=== PATIENT | male | born 1945 | race Caucasian/White ===

== ENCOUNTER → 2017-12-06 09:21 | Outpatient (CLI) | payer OTHER, SELFPAY ==
[2017-12-06 12:28] LABS: Thyroid Stim Hormone (TSH) 2.08 uIU/mL (0.358-3.74)
== END ==
PROVIDERS: Family Provider Family Medicine; PCP Family Medicine; Visit Provider Family Medicine
DX: E03.9 Hypothyroidism, unspecified (principal)
CPT/HCPCS: 36415; 84443

== ENCOUNTER → 2018-04-04 09:48 | Outpatient (CLI) | payer OTHER, SELFPAY ==
[2018-04-03 10:31] VITALS: BMI 23.7
== END ==
PROVIDERS: Family Provider Family Medicine; PCP Family Medicine; Referring Provider Nurse Practitioner Family; Visit Provider Nurse Practitioner Family
DX: K62.5 Hemorrhage of anus and rectum (principal)
CPT/HCPCS: 82274

== ENCOUNTER → 2018-04-05 10:06 | Outpatient (CLI) | payer MEDICARE, SELFPAY ==
[2018-04-03 10:31] VITALS: BMI 23.7
== END ==
PROVIDERS: Family Provider Family Medicine; PCP Family Medicine; Referring Provider Nurse Practitioner Family; Visit Provider Nurse Practitioner Family
DX: K62.5 Hemorrhage of anus and rectum (principal)
CPT/HCPCS: 82274

== ENCOUNTER 2018-05-02 06:16 | Day surgery (SDC) | payer MEDICARE, SELFPAY ==
[2018-04-03 10:31] VITALS: BMI 23.7
[2018-05-02] VITALS (7 sets, daily range): BP systolic 118–140; BP diastolic 60–91; PULSE 58–68; RESP 14–16; TEMP 36.2–37.4; O2SAT 95–100; BMI 23.0
--- NOTE | 2018-05-02 07:40 | HP.PCM_ITS ---
History of Present Illness Date of Admission: 05/02/18 The patient is a 73 year old M here for screening colonoscopy. He reports his last colonoscopy was 13 years ago. He did not have any polyps. He denies any family history of colon cancer and he denies any blood in the stool or abdominal pain. He has no inadvertent weight loss. Past Medical/Surgical History - Planned Operation Planned Operative Procedure/s: cscope open access Date of Operative Procedure: 05/02/18 Permit Signed: No S.O.S: No Is This Patient Having a Total Joint: No - Previous Hospitalizations/Surgeries HX Hospitalizations: No HX of Surgeries: 2009 right knee partial replacement. 1999 left knee partial. right and left shoulder scopes. 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 Hx Heart Attack: No Hx Congestive Heart Failure: No Hx Rheumatic Fever: No Hx Hypertension: Yes - controlled with med Hx Internal Defibrillator: No Hx Pacemaker: No Hx Cardiac Catheterization: No Hx Cardiac Surgery/Stents/Etc.: No Hx Stress Test: Yes - over 5 yrs ago/echo 2 yrs ago HX Edema: No Hx Pain in Legs when Walking/Leg Cramps: No - Respiratory Chronic Cough: No HX of Shortness of Breath: No Hoarseness: No Hx Chronic Obstructive Pulmonary Disease (COPD): No Hx Asthma: No Hx Emphysema: No Hx Sleep Apnea: No Hx Oxygen Use at Home: No Hx Respiratory Tract Infection/Cold (presently): No Do You Snore Loudly (louder than talking or can be heard): No Do You Often Feel Tired/ Fatigued/ Sleepy Dring Daytime?: No Has Anyone Observed You Stop Breathing During Sleep?: No Result (for STOP score): Negative Hx Smoking: No Smoking Status: Never smoker - Gastrointestinal Hx Gastroesophageal Reflux: No Hx Gastrointestinal Disorders: No Hx Gastrointestinal Bleed: No Hx Ulcer: No Hx Hiatal Hernia: No Difficulty Chewing/Swallowing: No Recent Onset of Swallowing Problems: No Special diet followed at home: No Hx Unplanned Weight Loss of 20#: No HX Unplanned Weight Gain of 20#: No - Neurological Hx Seizures: No HX Syncope/Blackout Spells/Unconsciousness: No Hx CVA/Stroke: No Hx Transient Ischemic Attacks (TIA): No Hx Multiple Sclerosis: No Hx Parkinson's Disease: No Hx Head/Neck Injury: No Hx Headaches: No Hx Back Injury/Pain: No Recent Onset of Speech Difficulty: No Restless Legs: No Does patient have nerve stimulator: No Patient instructed to have device shut off: No Rep notified?: No - Blood Disorder Hx Leukemia: No Bleeding Tendencies: No Hx Deep Vein Thrombosis: No Hx High Cholesterol: Yes - no med Blood Transmitted Disease: No Hx Hepatitis: No Hx Cirrhosis: No Hx Anemia: No Hx Blood Disorders: No - Genitourinary Hx Renal Disease: No - troubles with urination/on flomax - Musculoskeletal Hx Arthritis: Yes Hx Rheumatoid Arthritis: No Hx Gout: No Recent Onset of an Orthopedic Problem: No - Endocrine Hx Diabetes: No Thyroid Disease: Yes - on med Hx Steroid Therapy: No - Psycho/Social Hx Substance Use: No Hx Alcohol Use: No Hx Anxiety: No Hx Depression: No Mental Illness: No Hx Dementia: No - 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 - Miscellaneous Hx Cancer: No Recent Exposure to Contagious Disease: No Active MRSA: No Hx of C-Diff: No Any Loose Teeth: No Allergies donepezil [From Aricept] Allergy (Unknown, Verified 05/02/18 06:39) Unknown - Discharge Is Pt Admitted From a Retirement, or a Longterm: No Who Could Help: After D/C, Where Do you Plan to Go: Return Home - From the PAT History Number of Risk Factors: 2 - Physical Exam General: Alert, Oriented x3, Cooperative Neck: No JVD Lungs: Normal air movement Cardiovascular: Regular rate, Regular Rhythm Abdomen: Soft, Non Tender, Non-Distended Vital Signs Temp Pulse Resp BP Pulse Ox 99.2 F H 58 L 14 137/60 H 100 05/02/18 06:43 05/02/18 06:43 05/02/18 06:43 05/02/18 06:43 05/02/18 06:43 Oxygen Delivery Method Room Air Weight: 151 lb 7.321 oz Body Mass Index (BMI) 23.0 Assessment/Plan 73-year-old male for screening colonoscopy 1. I explained endoscopy in detail to the patient. I explained the risks including but not limited to stroke or heart attack with anesthesia, perforation of the GI tract, bleeding, infection. I explained that any of these could necessitate further emergency surgery. The patient understands and all questions were answered sufficiently. The patient wishes to proceed with procedure. Agus Muñiz MD Pager: [facility] [address] [place] [address] [address] [place] [address] Office: Surgery Risks - Colonoscopy Risks Include but are not Limited To: Risks include but are not limited to: Bleeding, perforation requiring further surgery, inability to complete colonoscopy requiring barium enema.
--- OUTSIDE RECORDS SUMMARY | 2018-07-06 13:59 | XMS RPT_ITS ---
:1945 Author Organization [place] Support Name Relationship Address Phone JOSÉ LUIS BORGES Unavailable [address] + [place] [address] KATERINA LACI Unavailable Unavailable + [place] [address] R Unavailable Unavailable Unavailable JOSÉ LUIS BORGES Unavailable [address] + [place] [address] LACI BORGES Unavailable Unavailable + [place] [address] R Unavailable Unavailable Unavailable JOSÉ LUIS BORGES Unavailable [address] + [place] [address] LACI BORGES Unavailable . + ., . . R Unavailable Unavailable Unavailable JOSÉ LUIS BORGES Unavailable [address] + [place] [address] KATERINA LACI Unavailable Unavailable + R Unavailable Unavailable Unavailable JOSÉ LUIS BORGES Unavailable [address] + [place] [address] LACI BORGES Unavailable Unavailable + R Unavailable Unavailable Unavailable JOSÉ LUIS BORGES Unavailable [address] + [place] [address] LACI BORGES Unavailable . + ., [place] . R Unavailable Unavailable Unavailable JOSÉ LUIS BORGES Unavailable [address] + [place] [address] LACI BORGES Unavailable Unavailable + R Unavailable Unavailable Unavailable JOSÉ LUIS BORGES Unavailable [address] + [place] [address] LACI BORGES Unavailable Unavailable + R Unavailable Unavailable Unavailable DOMER JOSÉ LUIS Unavailable [address] + [place] [address] R Unavailable Unavailable Unavailable DOMER, JOSÉ LUIS Unavailable [address] + [place] [address] R Unavailable Unavailable Unavailable DOMER, JOSÉ LUIS Unavailable [address] + [place] [address] R Unavailable Unavailable Unavailable DOMER, JOSÉ LUIS Unavailable [address] + [place] [address] DOMER, JOSÉ LUIS Unavailable [address] + [place] [address] DOMER, JOSÉ LUIS Unavailable [address] + [place] [address] DOMER, JOSÉ LUIS Unavailable [address] + [place] [address] DOMER, JOSÉ LUIS Unavailable [address] + [place] [address] DOMER, JOSÉ LUIS Unavailable [address] + [place] [address] Care Team Providers Name Role Phone ABUNDIO NEYHEIDI Attending Unavailable BROWN, RORY Primary Care Unavailable FERMIN DENNY MD, JR. Attending Unavailable BROWN, RORY Primary Care Unavailable FERMIN DENNY MD, JR. Attending Unavailable BROWN, RORY Primary Care Unavailable Abimael Guardado CHLORINATOR-C Attending Unavailable Brown, Rory Referring Unavailable GuardadoAbimael barboza CHLORINATOR-C Attending Unavailable GuardadoAbimael CHLORINATOR-C Referring Unavailable Brown, Rory Primary Care Unavailable Abimael Guardado CHLORINATOR-C Attending Unavailable Guardado, Abimael CHLORINATOR-C Referring Unavailable Brown, Rory Primary Care Unavailable Nurse, Surgery Attending Unavailable Brown, Rory Referring Unavailable Agus Muñiz Attending Unavailable Rickyabrvenkat Agus Referring Unavailable Brown, Rory Primary Care Unavailable Agus Muñiz Attending Unavailable Mary Kay Agus Referring Unavailable Brown, Rory Primary Care Unavailable Agus Muñiz Consulting Unavailable Bonnie Richardson Attending Unavailable Bonnie Richardson Attending Unavailable Brown, Rory Attending Unavailable Brown, Rory Referring Unavailable Brown, Rory Primary Care Unavailable Brown, Rory Attending Unavailable Rory Camacho Referring Unavailable Doug Rory Primary Care Unavailable Lynette Hines Attending Unavailable PROBLEMS PROBLEMS DATE TYPE CONDITION / CODE ATTENDING STATUS SOURCE 04/04/2018 Unknown K62.5 - Abimael Guardado Active [place] Hemorrhage of CHLORINATOR-C [facility] anus and rectum / Hospital K62.5(ICD-10) Repository 12/09/2017 Unknown E03.9 - DougRory Active [place] Hypothyroidism, Community unspecified / Hospital E03.9(ICD-10) Repository PROCEDURES PROCEDURES No Procedure Records FoundRESULTS RESULTS HISTORY AND PHYSICAL Observed: 05/02/2018 Status: F Source: [facility] [place] EXAM 7:40 AM [facility] REPOSITORY [facility] Medical Records Department [address] [place] [address] History and Physical 05/02/18 0739 MR#: [id number] Acct: [id number] Name: KATLYN BORGES Rep #: [id number] : 1945 73 From: Agus Muñiz MD PCP: Rory Camacho DO Status: REG [facility] Y Location: [place] [address] History of Present Illness Date of Admission: 05/02/18 The patient is a 73 year old M here for screening colonoscopy. He reports his last colonoscopy was 13 years ago. He did not have any polyps. He denies any family history of colon cancer and he denies any blood in the stool or abdominal pain. He has no inadvertent weight loss. Past Medical/Surgical History - Planned Operation Planned Operative Procedure/s: cscope open access Date of Operative Procedure: 05/02/18 Permit Signed: No S.O.S: No Is This Patient Having a Total Joint: No - Previous Hospitalizations/Surgeries HX Hospitalizations: No HX of Surgeries: 2009 right knee partial replacement. 1999 left knee partial. right and left shoulder scopes. colonoscopy Any Problems With Anesthesia: Yes - nausea and vomiting in the past You/Your Family Experience Fever (Hyperthermia) With Anes: No Cholinesterase deficiency: No - Cardiovascular Hx Chest Pain within Last 2 months: No Hx of Irregular Heartbeat and/or Afib: No - mvp/follows with [facility]/last visit 06/2017 Hx Heart Attack: No Hx Congestive Heart Failure: No Hx Rheumatic Fever: No Hx Hypertension: Yes - controlled with med Hx Internal Defibrillator: No Hx Pacemaker: No Hx Cardiac Catheterization: No Hx Cardiac Surgery/Stents/Etc.: No Hx Stress Test: Yes - over 5 yrs ago/echo 2 yrs ago HX Edema: No Hx Pain in Legs when Walking/Leg Cramps: No - Respiratory Chronic Cough: No HX of Shortness of Breath: No Hoarseness: No Hx Chronic Obstructive Pulmonary Disease (COPD): No Hx Asthma: No Hx Emphysema: No Hx Sleep Apnea: No Hx Oxygen Use at Home: No Hx Respiratory Tract Infection/Cold (presently): No Do You Snore Loudly (louder than talking or can be heard): No Do You Often Feel Tired/ Fatigued/ Sleepy Dring Daytime?: No Has Anyone Observed You Stop Breathing During Sleep?: No Result (for STOP score): Negative Hx Smoking: No Smoking Status: Never smoker - Gastrointestinal Hx Gastroesophageal Reflux: No Hx Gastrointestinal Disorders: No Hx Gastrointestinal Bleed: No Hx Ulcer: No Hx Hiatal Hernia: No Difficulty Chewing/Swallowing: No Recent Onset of Swallowing Problems: No Special diet followed at home: No Hx Unplanned Weight Loss of 20#: No HX Unplanned Weight Gain of 20#: No - Neurological Hx Seizures: No HX Syncope/Blackout Spells/Unconsciousness: No Hx CVA/Stroke: No Hx Transient Ischemic Attacks (TIA): No Hx Multiple Sclerosis: No Hx Parkinson's Disease: No Hx Head/Neck Injury: No Hx Headaches: No Hx Back Injury/Pain: No Recent Onset of Speech Difficulty: No Restless Legs: No Does patient have nerve stimulator: No Patient instructed to have device shut off: No Rep notified?: No - Blood Disorder Hx Leukemia: No Bleeding Tendencies: No Hx Deep Vein Thrombosis: No Hx High Cholesterol: Yes - no med Blood Transmitted Disease: No Hx Hepatitis: No Hx Cirrhosis: No Hx Anemia: No Hx Blood Disorders: No - Genitourinary Hx Renal Disease: No - troubles with urination/on flomax - Musculoskeletal Hx Arthritis: Yes Hx Rheumatoid Arthritis: No Hx Gout: No Recent Onset of an Orthopedic Problem: No - Endocrine Hx Diabetes: No Thyroid Disease: Yes - on med Hx Steroid Therapy: No - Psycho/Social Hx Substance Use: No Hx Alcohol Use: No Hx Anxiety: No Hx Depression: No Mental Illness: No Hx Dementia: No - 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 - Miscellaneous Hx Cancer: No Recent Exposure to Contagious Disease: No Active MRSA: No Hx of C-Diff: No Any Loose Teeth: No Allergies donepezil [From Aricept] Allergy (Unknown, Verified 05/02/18 06:39) Unknown - Discharge Is Pt Admitted From a Mcfp, or a Custodial: No Who Could Help: After D/C, Where Do you Plan to Go: Return Home - From the PAT History Number of Risk Factors: 2 - Physical Exam General: Alert, Oriented x3, Cooperative Neck: No JVD Lungs: Normal air movement Cardiovascular: Regular rate, Regular Rhythm Abdomen: Soft, Non Tender, Non-Distended Vital Signs Temp Pulse Resp BP Pulse Ox 99.2 F H 58 L 14 137/60 H 100 05/02/18 06:43 05/02/18 06:43 05/02/18 06:43 05/02/18 06:43 05/02/18 06:43 Oxygen Delivery Method Room Air Weight: 151 lb 7.321 oz Body Mass Index (BMI) 23.0 Assessment/Plan 73-year-old male for screening colonoscopy 1. I explained endoscopy in detail to the patient. I explained the risks including but not limited to stroke or heart attack with anesthesia, perforation of the GI tract, bleeding, infection. I explained that any of these could necessitate further emergency surgery. The patient understands and all questions were answered sufficiently. The patient wishes to proceed with procedure. Agus Muñiz MD Pager: [facility] [address] [place] [address], [address] [place] [address] Office: Surgery Risks - Colonoscopy Risks Include but are not Limited To: Risks include but are not limited to: Bleeding, perforation requiring further surgery, inability to complete colonoscopy requiring barium enema. 05/02/18 7740 <Electronically signed by Agus Muñiz MD> Date Agus Muñiz MD Cosigner Signature: Date (if applicable) CC: Agus Muñiz MD; Rory Camacho DO Signed Observed: 04/05/2018 Status: F Source: [facility] STOOL OCCULT BLOOD 10:38 AM [facility]OB REPOSITORY STOB iFOB Occult Blood Negative Performed By: #### [id number] #### [facility] [address] [place], [address] Observed: 04/04/2018 Status: F Source: [facility] STOOL OCCULT BLOOD 9:52 AM [facility] REPOSITORY Comments: x 3 for diagnostic purposes STOB iFOB Occult Blood Negative Performed By: #### [id number] #### [facility] [address], [address] INTERNAL MEDICINE Observed: 04/03/2018 Status: F Source: JEZ OFFICE VISIT 12:05 PM [facility] REPOSITORY [facility] [address] [place] [address] [place] [address] OFFICE VISIT Date of Service: 04/03/18 MR#: [id number] Acct: [id number] Name: KATLYN BORGES Brady Rep #: [id number] : 1945 Provider: Abimael Guardado NP Age/Sex: 73/M Location: [facility] Status: Signed Intake Vital Signs04/03/18 Body Mass Index (BMI) 23.7 04/03/18 Height 5 ft 7.75 in 04/03/18 Weight: 158 lb 04/03/18 Body Mass Index (BMI) 24.2 04/03/18 Blood Pressure 136/77 H 04/03/18 Blood Pressure Location brachial Intake Visit Reasons: Bleeding with bowel movement Chief Complaint: Rectal bleeding Is patient in pain?: No Allergies donepezil [From Aricept] Allergy (Unknown, Verified 04/03/18 10:30) Unknown Medications metoprolol tartrate 50 mg tablet 50 mg PO BID 10/09/17 [History Confirmed 04/03/18] tamsulosin 0.4 mg capsule 0.4 mg PO QDAY #90 cap 10/09/17 [Rx Confirmed 04/03/18] aspirin 81 mg tablet,delayed release 81 mg PO DAILY 12/05/17 [History Confirmed 04/03/18] naproxen sodium 220 mg tablet 220 mg PO BID PRN 12/05/17 [History Confirmed 04/03/18] levothyroxine 75 mcg tablet 75 mcg PO DAILY #90 tab 12/17/17 [Rx Confirmed 04/03/18] memantine 10 mg tablet 10 mg PO BID #180 tab 03/11/18 [Rx Confirmed 04/03/18] PFSH Medical History Mitral valve prolapse (Chronic) Arthritis (Chronic) Memory impairment (Chronic) BPH (benign prostatic hyperplasia) (Chronic) Hypothyroid (Chronic) Surgical History History of cardiac catheterization (Acute) History of cataract extraction (Acute) History of knee replacement (Acute) History of orthopedic surgery (Acute) Family History Brother Stomach cancer Lung cancer Diabetes Sister Diabetes Social History Smoking Status: Never smoker alcohol intake: never substance use type: does not use what type of physical activity do you participate in: none HPI HPI Chief Complaint: Rectal bleeding Details: KATLYN BORGES, is a 73 M who presents to the office today for an acute visit of bright red blood per stool this morning x1 occasion. He has a past medical history is as above. The patient presents to the office today with his . He denies any prior history of rectal bleeding or hemorrhoids or constipation. The patient states that he went to have his morning bowel movement and noticed some bright red blood in the toilet. He denies any constipation denies any straining. He does state that his last colonoscopy was over 10 years ago and that it was normal. However he is due for another screening colonoscopy. Denies any prior history of colon cancer and denies any other acute concerns at this time. He does state that this was the first occasion that he has ever noted blood in the stool. The patient otherwise denies any fever, chills, nausea, vomiting, shortness of breath, chest pain or pressure, palpitations, orthopnea, lower extremity edema, syncope or presyncopal episodes. ROS Const Constitutional: No chills, fatigue, fever(s), frequent falls, malaise, weakness, sleep problems or change in appetite Eyes Eyes: No blurry vision, change in vision, double vision, discharge or visual disturbances ENT ENT: No abnormal hearing, ear pain, ear pressure, tinnitus or dizziness/vertigo Resp Respiratory: No cough, shortness of breath or wheezing Cardio Cardiology: No chest pain at rest, chest pain with exertion, shortness of breath, dyspnea on exertion, generalized swelling, irregular heart rhythm, lightheadedness, orthopnea, fast heart rate or palpitations Gastro GI: No abdominal pain, change in bowel habits, constipation, diarrhea, nausea/dyspepsia or vomiting Genitourinary Male: No difficulty urinating, burning urination, painful urination, urinary incontinence, urinary frequency, urinary urgency, urinary hesitancy, urinary retention, blood in urine, Frequent nighttime urination/ nocturia, sexual problems, testicle lump or testicle pain Musc Musculoskeletal: Positive for joint pain (Lt Hip); no back pain, joint swelling, limited range of motion, numbness, tingling or muscle weakness Skin Skin: No change in skin color, itching, rash or wounds Breast Breast: No breast lump or breast pain Neuro Neurology: No frequent falls, weakness, abnormal hearing, numbness, tingling, unsteady gait/balance, dizziness, loss of vision, memory loss or visual disturbances Psych Psychiatric: No memory loss, No anxiety, No change in appetite, No depression, No Thoughts of harming yourself/Others Endo Endocrine: No fatigue, heat intolerance, increased thirst/drinking, increased hunger or increased urination Aller/Imm Allergy/Immunologic: No wheezing, itchy eyes or seasonal allergy symptoms Khoi/Lymp Hematologic/Lymphatic: No easy bleeding, easy bruising or enlarged lymph nodes Exam Const General: cooperative, healthy appearing Nutritional Appearance: average body habitus Orientation: oriented x3 Neck Neck: normal visual inspection, no lymphadenopathy Neck mass: No Thyroid: thyroid normal Resp Effort AND Inspection: normal respiratory effort Auscultation: Bilateral: Clear to Auscultation Cardio Rate: regular rate Rhythm: regular rhythm GI Rectal Exam: normal sphincter tone, No fecal impaction, No fissure, hemorrhoids Other: External nonthrombosed hemorrhoid present at 6:00, no visible blood present on exam Musc Musculoskeletal: No muscle weakness Skin General: no rashes or lesions noted Neuro General: alert, awake Cranial Nerves: CN's II-XI intact bilaterally Cognition: normal cognition Speech: speech normal Gait: normal gait Motor: muscle tone normal throughout Psych Attitude: cooperative Thought Process: normal Thought Content: normal Judgment: judgment good Assessment AND Plan Problems 1. Rectal bleeding K62.5 2. External hemorrhoid K64.4 Plan Patient's rectal bleeding most likely due to his hemorrhoid. Discussed conservative management such as increasing fluid intake, increasing fiber intake, and the use of [id number] Preparation H. The hemorrhoid is not thrombosed at this time. Did discuss with patient that since he is due for his screening colonoscopy that this should be scheduled. In the meantime a fecal occult blood test was ordered x3 for diagnostic purposes. Patient and educated on red flag signs and symptoms requiring urgent medical attention, both verbalized understanding. Information given to patient regarding the local general surgeons who do colonoscopies. Patient to follow-up as previously scheduled or sooner if needed Orders Orders: Coding Level of Care Code Off vis,est,level 3 Diagnoses Rectal bleeding K62.5 External hemorrhoid K64.4 04/03/18 1205 <Electronically signed by Abimael MOREAU> Date Abimael MOREAU Cosigner Signature: Date (if applicable) CC: THYROID STIM HORMONE Collected: 12/06/2017 Status: F Source: [facility] (TSH) 9:35 AM [facility] REPOSITORY TYPE CODE TESTS RESULT OUT OF RANGE REFERENCE UNITS LAB L501.9520 0.358-3.74 uIU/mL Normal TSH 2.08 Performed By: #### L501.9520 #### [facility] [address] [place], [address] INTERNAL MEDICINE Observed: 12/05/2017 Status: F Source: JEZ OFFICE VISIT 2:37 PM [facility] REPOSITORY [facility] [address] [place] [address] OFFICE VISIT Date of Service: 12/05/17 MR#: [id number] Acct: [id number] Name: KATLYN BORGES Rep #: [id number] : 1945 Provider: Rory Camacho DO Age/Sex: 72/M Location: [facility] Status: Signed Intake Vital Signs12/05/17 Height 5 ft 7.75 in 12/05/17 Weight: 155 lb 12/05/17 Body Mass Index (BMI) 23.7 12/05/17 Blood Pressure 132/74 Intake Visit Reasons: EST Chief Complaint: Est Care - Check up Is patient in pain?: No Allergies donepezil [From Aricept] Allergy (Unknown, Verified 12/05/17 13:38) Unknown Medications metoprolol tartrate 50 mg tablet 50 mg PO BID 10/09/17 [History Confirmed 10/09/17] tamsulosin 0.4 mg capsule 0.4 mg PO QDAY #90 cap 10/09/17 [Rx] memantine 10 mg tablet 10 mg PO BID #180 tab 11/26/17 [Rx] aspirin 81 mg tablet,delayed release 81 mg PO DAILY 12/05/17 [History Confirmed 12/05/17] levothyroxine 75 mcg capsule 75 mcg PO DAILY 12/05/17 [History Confirmed 12/05/17] naproxen sodium 220 mg tablet 220 mg PO BID PRN 12/05/17 [History Confirmed 12/05/17] PFSH Medical History Mitral valve prolapse (Chronic) Arthritis (Chronic) Memory impairment (Chronic) BPH (benign prostatic hyperplasia) (Chronic) Hypothyroid (Chronic) Surgical History History of cardiac catheterization (Acute) History of cataract extraction (Acute) History of knee replacement (Acute) History of orthopedic surgery (Acute) Family History Brother Stomach cancer Lung cancer Diabetes Sister Diabetes Social History Smoking Status: Never smoker alcohol intake: never substance use type: does not use what type of physical activity do you participate in: none HPI HPI Chief Complaint: Est Care - Check up Details: KATLYN BORGES, is a 72 M who presents to the office today for a check up, he has seen Dr. Denny, has been on memantine for his memory, ROS Const Constitutional: No chills, fatigue, fever(s), frequent falls, malaise, weakness, sleep problems or change in appetite Eyes Eyes: No blurry vision, change in vision, double vision, discharge or visual disturbances ENT ENT: Positive for hearing loss; no abnormal hearing, ear pain, ear pressure, tinnitus or dizziness/vertigo Resp Respiratory: No cough, shortness of breath or wheezing Cardio Cardiology: No chest pain at rest, chest pain with exertion, shortness of breath, dyspnea on exertion, generalized swelling, irregular heart rhythm, lightheadedness, orthopnea, fast heart rate or palpitations Gastro GI: No abdominal pain, change in bowel habits, constipation, diarrhea, nausea/dyspepsia or vomiting Genitourinary Male: Positive for urinary frequency; no difficulty urinating, burning urination, painful urination, urinary incontinence, urinary urgency, urinary hesitancy, urinary retention, blood in urine, Frequent nighttime urination/ nocturia, sexual problems, testicle lump or testicle pain Musc Musculoskeletal: No joint pain, back pain, joint swelling, limited range of motion, muscle weakness, numbness or tingling Skin Skin: No change in skin color, itching, rash or wounds Breast Breast: No breast lump or breast pain Neuro Neurology: Positive for unsteady gait/balance; no frequent falls, weakness, abnormal hearing, numbness, tingling, dizziness, loss of vision, memory loss or visual disturbances Psych Psychiatric: No memory loss, No anxiety, No change in appetite, No depression, No Thoughts of harming yourself/Others Endo Endocrine: No fatigue, heat intolerance, increased thirst/drinking, increased hunger or increased urination Aller/Imm Allergy/Immunologic: No wheezing, itchy eyes or seasonal allergy symptoms Khoi/Lymp Hematologic/Lymphatic: No easy bleeding, easy bruising or enlarged lymph nodes Exam Const General: cooperative, healthy appearing Nutritional Appearance: average body habitus Orientation: oriented x3 Neck Neck: normal visual inspection, no lymphadenopathy Neck mass: No Thyroid: thyroid normal Resp Effort AND Inspection: normal respiratory effort Auscultation: Bilateral: Clear to Auscultation Cardio Rate: regular rate Rhythm: regular rhythm Musc Musculoskeletal: No muscle weakness Skin General: no rashes or lesions noted Neuro General: alert, awake Cranial Nerves: CN's II-XI intact bilaterally Cognition: normal cognition Speech: speech normal Gait: normal gait Motor: muscle tone normal throughout Psych Attitude: cooperative Thought Process: normal Thought Content: normal Judgment: judgment good Assessment AND Plan Problems 1. Memory impairment R41.3 2. BPH (benign prostatic hyperplasia) N40.0 3. Hypothyroid E03.9 Plan This patient was here for regular checkup. He has seen a neurologist Dr. Boyd who says that he believes he has early Alzheimer's disease and continue him on the Namenda that I had started him on about 2 years ago. Physical examination was unchanged. Mental status examination was unchanged. A TSH was ordered and I will refill his thyroid based on the results of that test. Orders Orders: Plan Detail Follow Up 1 Year Coding Level of Care Code Off vis,est,level 3 Diagnoses Memory impairment R41.3 BPH (benign prostatic hyperplasia) N40.0 Hypothyroid E03.9 12/05/17 1437 <Electronically signed by Rory Camacho DO> Date Rory Camacho DO Cosigner Signature: Date (if applicable) CC: MRI BRAIN W/O Observed: 08/19/2017 Status: F Source: [employer] CONTRAST 11:00 AM [facility] REPOSITORY ORIGINAL MRI BRAIN W/O CONTRAST Clinical Statement: ATAXIA, DEMENTIA TECHNIQUE: Sagittal T1, axial FLAIR, T2 and diffusion-weighted images of the brain with ADC maps. COMPARISON: None. FINDINGS: Diffusion imaging shows no hyperacute, acute, or early subacute infarction. There is no mass, mass-effect, or abnormal extra- axial fluid collection. Dilated perivascular spaces are noted in the LEFT basal ganglia. There is no abnormal brain parenchymal signal. The ventricles are mildly enlarged with commensurate enlargement of sulci consistent with mild atrophy which is most prominent posteriorly. Bilateral cereb ellar atrophy also noted. There are preserved signal voids in the larger intracranial vessels. The posterior circulation appears diminutive but bilateral posterior communicating arteries are identified. The paranasal sinuses and mastoid air cells are clear. The marrow signal pattern is unremarkable. IMPRESSION: 1. No acute intracranial abnormality. 2. Mild cerebral atrophy with a posterior predominance. 3. Bilateral cerebellar atrophy. Interpreted By: Margarita Chou Preliminary Report By: Margarita Chou Electronically Signed By: Margarita Chou Dictated Date: 08/19/2017 11:49:05 AM Prelim Date: 08/19/2017 11:49:05 AM Sign Date: 08/19/2017 11:56:00 AM BUN Collected: 08/02/2017 Status: F Source: [facility] 7:33 AM [facility] REPOSITORY TYPE CODE TESTS RESULT OUT OF RANGE REFERENCE UNITS LAB BUN(LOINC) 7.0-18.0 mg/dL High BUN 29.1 Performed By: #### BUN, CRE, GFR, TSH #### [address] [address] #### B12, FOL #### [place] [address] CRE Collected: 08/02/2017 Status: F Source: [facility] 7:33 AM [facility] REPOSITORY TYPE CODE TESTS RESULT OUT OF REFERENCE UNITS RANGE LAB CRE(LOINC) 0.6-1.2 mg/dL Creatinine Lvl 1.2 (s) Performed By: #### BUN, CRE, GFR, TSH #### [address] [address] #### B12, FOL #### [place] [address] .GFR Collected: 08/02/2017 Status: F Source: [facility] 7:33 AM [facility] REPOSITORY TYPE CODE TESTS RESULT OUT OF REFERENCE UNITS RANGE LAB GFRAA(LOINC ml/min/1.73 ) sqm GFR 74 Monegasque Result Comment: GFR Population mean for , Non- Americans Ages 20-29 = 116 mL/min/1.73 sq.m. Ages 30-39 = 107 mL/min/1.73 sq.m. Ages 40-49 = 99 mL/min/1.73 sq.m. Ages 50-59 = 93 mL/min/1.73 sq.m. Ages 60-69 = 85 mL/min/1.73 sq.m. Ages 70+ = 75 mL/min/1.73 sq.m. Chronic Kidney Disease: Less than 60 mL/min/1.73 square meters End Stage Renal Disease: Less than 15 mL/min/1.73 square meters LAB GFRNO(LOINC) ml/min/1.73sqm GFR Non- >60 Result Comment: GFR Population mean for , Non- Americans Ages 20-29 = 116 mL/min/1.73 sq.m. Ages 30-39 = 107 mL/min/1.73 sq.m. Ages 40-49 = 99 mL/min/1.73 sq.m. Ages 50-59 = 93 mL/min/1.73 sq.m. Ages 60-69 = 85 mL/min/1.73 sq.m. Ages 70+ = 75 mL/min/1.73 sq.m. Chronic Kidney Disease: Less than 60 mL/min/1.73 square meters End Stage Renal Disease: Less than 15 mL/min/1.73 square meters Performed By: #### BUN, CRE, GFR, TSH #### [place] [address] #### B12, FOL #### [place] [address] TSH Collected: 08/02/2017 Status: F Source: [facility] 7:33 AM [facility] REPOSITORY TYPE CODE TESTS RESULT OUT OF RANGE REFERENCE UNITS LAB TSH(LOINC) 0.27-4.20 mcIU/mL TSH 3.83 Performed By: #### BUN, CRE, GFR, TSH #### [address] [address] #### B12, FOL #### [place] [address] B12 Collected: 08/02/2017 Status: F Source: [facility] 7:33 AM [facility] REPOSITORY TYPE CODE TESTS RESULT OUT OF REFERENCE UNITS RANGE LAB B12(LOINC) 211-911 pg/mL Vitamin B12 424 Lvl Performed By: #### BUN, CRE, GFR, TSH #### [place] [id number] #### B12, FOL #### [place] [address] FOL Collected: 08/02/2017 Status: F Source: [facility] 7:33 AM [facility] REPOSITORY TYPE CODE TESTS RESULT OUT OF REFERENCE UNITS RANGE LAB FOL(LOINC) 1.1-20.0 ng/mL Folate 19.3 Performed By: #### BUN, CRE, GFR, TSH #### [place] [address] [place], [place] [address] #### B12, FOL #### [place] [id number] [place] [address] LIPID Collected: 06/27/2017 Status: F Source: [facility] 8:41 AM [facility] REPOSITORY TYPE CODE TESTS RESULT OUT OF REFERENCE UNITS RANGE LAB CHOL(LOINC 131-200 mg/dL ) Cholesterol High 257 Result Comment: Cholesterol Reference Interval: Less than 200 Desirable 200-239 Borderline high risk 240 and above High risk LAB TRIG(LOINC) 40-150 mg/dL Triglycerides High 154 Result Comment: Triglyceride Reference Interval: Less than 150 Normal 150-199 Borderline high risk 200-499 High risk 500 or higher Very high risk LAB HD(LOINC) 35-90 mg/dL HDL Cholesterol 50 Result Comment: HDL Reference Interval: Less than 40 Low - high risk 60 or above Optimal/lowers risk LAB LDL(LOINC) 0-130 mg/dL LDL High Cholesterol 176 Result Comment: LDL is a calculated result and requires a 12-hr fast. LDL Reference Interval: Less than 100 Optimal 100-129 Near or above optimal 130-159 Borderline high risk 160-189 High risk 190 and above Very high risk Performed By: #### LIPID, CMP, GFR, CBC, ADIFF, ANEU #### [place] [address] [place], [place] [address] CMP Collected: 06/27/2017 Status: F Source: [facility] 8:41 AM [facility] REPOSITORY TYPE CODE TESTS RESULT OUT OF REFERENCE UNITS RANGE LAB 1547-9 83-110 mg/dL GLUCOSE 96 LAB NA(LOINC) 136-146 mEq/L Sodium Level 141 LAB K(LOINC) 3.5-5.1 mEq/L Potassium Level 4.8 LAB CL(LOINC) 98-107 mEq/L Chloride 105 LAB CO2(LOINC) 23-31 mEq/L CO2 28 LAB EBAL(LOINC mEq/L ) Electrolyte Balance 8.0 LAB BUN(LOINC) 7.0-18.0 mg/dL BUN High 29.3 LAB CRE(LOINC) 0.6-1.2 mg/dL Creatinine High Lvl (s) 1.4 LAB BC(LOINC) 7-27 ratio BUN/Creatinine 21 Ratio LAB CA(LOINC) 8.4-10.2 mg/dL Calcium Lvl 9.1 LAB PROT(LOINC 6.0-8.3 G/dL ) Total Protein 6.5 LAB ALB(LOINC) 3.4-4.8 G/dL Albumin Level 4.2 LAB GLB(LOINC) G/dL Globulin 2.3 LAB AG(LOINC) 1.1-2.5 ratio A/G Ratio 1.8 LAB BILT(LOINC 0.2-1.0 mg/dL ) Bili Total 0.3 LAB AP(LOINC) 40-135 IU/L Alk Phos 60 LAB AST(LOINC) 10-40 IU/L AST/SGOT 24 LAB ALT(LOINC) 10-35 IU/L ALT/SGPT 30 Performed By: #### LIPID, CMP, GFR, CBC, ADIFF, ANEU #### [address] [address] .GFR Collected: 06/27/2017 Status: F Source: [facility] 8:41 AM [facility] REPOSITORY TYPE CODE TESTS RESULT OUT OF REFERENCE UNITS RANGE LAB GFRAA(LOINC ml/min/1.73 ) sqm GFR 61 Monegasque Result Comment: GFR Population mean for , Non- Americans Ages 20-29 = 116 mL/min/1.73 sq.m. Ages 30-39 = 107 mL/min/1.73 sq.m. Ages 40-49 = 99 mL/min/1.73 sq.m. Ages 50-59 = 93 mL/min/1.73 sq.m. Ages 60-69 = 85 mL/min/1.73 sq.m. Ages 70+ = 75 mL/min/1.73 sq.m. Chronic Kidney Disease: Less than 60 mL/min/1.73 square meters End Stage Renal Disease: Less than 15 mL/min/1.73 square meters LAB GFRNO(LOINC) ml/min/1.73sqm GFR Non- 51 Result Comment: GFR Population mean for , Non- Americans Ages 20-29 = 116 mL/min/1.73 sq.m. Ages 30-39 = 107 mL/min/1.73 sq.m. Ages 40-49 = 99 mL/min/1.73 sq.m. Ages 50-59 = 93 mL/min/1.73 sq.m. Ages 60-69 = 85 mL/min/1.73 sq.m. Ages 70+ = 75 mL/min/1.73 sq.m. Chronic Kidney Disease: Less than 60 mL/min/1.73 square meters End Stage Renal Disease: Less than 15 mL/min/1.73 square meters Performed By: #### LIPID, CMP, GFR, CBC, ADIFF, ANEU #### [place] [address] [place], [place] [address] CBC Collected: 06/27/2017 Status: F Source: [facility] 8:41 AM [facility] REPOSITORY TYPE CODE TESTS RESULT OUT OF REFERENCE UNITS RANGE LAB WBC(LOINC) 4.60-10.80 10 3/mcL WBC 7.30 LAB RBCCT(LOINC 4.04-6.13 10 6/mcL ) RBC 4.92 LAB HGB(LOINC) 14.0-18.0 G/dL Hgb 14.8 LAB HCT(LOINC) 42.0-52.0 % Hct 45.4 LAB MCV(LOINC) 80.0-94.0 fL MCV 92.2 LAB MCH(LOINC) 27.0-31.2 pg MCH 30.0 LAB MCHC(LOINC) 31.8-35.4 G/dL MCHC 32.6 LAB RDW(LOINC) 11.5-14.5 % RDW 13.8 LAB PLT(LOINC) 130-400 10 3/mcL Platelet 196 LAB MPV(LOINC) 7.4-10.4 fL MPV 9.7 Performed By: #### LIPID, CMP, GFR, CBC, ADIFF, ANEU #### [place] [address] [place], [place] [address] .AUTO DIFF Collected: 06/27/2017 Status: F Source: [facility] 8:41 [facility] REPOSITORY TYPE CODE TESTS RESULT OUT OF REFERENCE UNITS RANGE LAB JOSE(LOINC) 37.0-80.0 % Neutrophil % 58.8 LAB LYM(LOINC) 10.0-50.0 % Lymphocyte % 27.7 LAB MON(LOINC) 1.7-13.0 % Monocyte % 10.9 LAB EO(LOINC) 0.0-7.0 % Eosinophil % 1.7 LAB BAS(LOINC) 0.0-2.5 % Basophil % 0.9 LAB ABLYM(LOIN 0.77-3.85 10 3/mcL C) Lymphocyte, 2.00 Absolute LAB HIRA(LOINC 0.15-1.00 10 3/mcL ) Monocyte, 0.80 Absolute LAB AEOS(LOINC 0.00-0.40 10 3/mcL ) Eosinophil, 0.10 Absolute LAB ABAS(LOINC 0.00-0.19 10 3/mcL ) Basophil, 0.10 Absolute Performed By: #### LIPID, CMP, GFR, CBC, ADIFF, ANEU #### [place] [address] [place], [place] [address] .NEUABS Collected: 06/27/2017 Status: F Source: [facility] 8:41 AM [facility] REPOSITORY TYPE CODE TESTS RESULT OUT OF REFERENCE UNITS RANGE LAB ANEU(LOINC) 2.85-6.16 10 3/mcL Neutrophil, 4.30 Absolute Performed By: #### LIPID, CMP, GFR, CBC, ADIFF, ANEU #### [place] [address] [place], [place] [address] ALLERGIES ALLERGIES DATE TYPE / CODE NAME / CODE REACTION SEVERITY SOURCE 05/02/2018 Drug donepezil/F0 Unknown Unknown [facility] Allergy/4160 [id number]([facility] 37759(SNOMED ORM) Repository CT) ENCOUNTERS ENCOUNTERS ADMIT/DISCHARGE ACCOUNT NUMBER ADMITTING ENCOUNTER LOCATION SOURCE CLASS 05/02/2018 [id number] Ambulatory BMSBuilding: [place] BMS.[facility] Repository 05/02/2018/05/02/19 [id number] [place]ulatory [place] 19 [facility] ding:ENRoom: Repository AC10 04/10/2018/04/10/20 [id number] Ambulatory BMSBuilding: [place] 18 [facility] Repository 04/05/2018 [id number] Ambulatory [facility] ding:LABSPEC Repository 04/04/2018 [id number] Ambulatory [facility] ding:LABSPEC Repository 04/03/2018/04/03/20 [id number] [facility] [facility] 12/17/2017 [id number] [facility] 12/06/2017 [id number] Ambulatory [place] [facility] ding:MTLAB Repository 12/05/2017/12/06/19 [id number] Ambulatory [facility]: [place] 18 [facility] Repository 12/05/2017 [id number] Ambulatory [facility] [place] [facility] Rep[facility] 10/09/2017 [id number] Ambulatory [facility]: [place] [facility] Repository 08/19/2017/08/20/19 [id number] Ambulatory BBuilding:RA [address] Repository 08/02/2017/08/03/19 [id number] Ambulatory [address] ding:[facility] Repository 06/27/2017/06/28/19 [id number] Ambulatory [address] ding:[facility] Repository PAYERS PAYERS ENCOUNTER GUARANTOR PAYER SUBSCRIBER SOURCE 05/02/2018 K[place] [id number] BACK Insurance:[facility] Community [place] MEDICAREPolicy [id number] Number: Repository [address]Byv: 330 [id number] [phone] (HP) Date:8530-84-13II [address] [place] [address]ZE: 05/02/2018 Secondary NOT GIVENUNK [place] Insurance:SELF PAY [facility] Number: Effective Repository Date:2018-05-02 05/02/2018 KATLYN [id number] BACK [facility] Community [place] MEDICAREPolicy [id number], [place] Number: Repository [address]Nrz: 330 [id number] [phone] (HP) Date:9054-16-39BV [address] [place] [address]TX: 05/02/2018 Secondary NOT GIVENUNK [place] Insurance:SELF PAY [facility]: Effective Repository Date:2018-04-10 04/10/2018 KATLYN Abreu Primary KATLYN Abreu [place] [id number] BACK Insurance:SUMMA CARE DOMERDOB: Community [place] MEDICAREPolicy [id number], [place] Number: Repository [address]Bsh: (330) [id number] [phone] (HP) Date:7812-43-51GK [address] HEALTH[place], [place] [address]BQ: 04/10/2018 Secondary NOT GIVENUNK [place] Insurance:SELF PAY [facility] Number: Effective Repository Date:2018-04-10 04/05/2018 KATLYN Abreu Primary KATLYN Abreu [place] [id number] BACK Insurance:SUMMA CARE DOMERDOB: Community [place] [facility] [id number], [place] Number: Repository [address]Tus: (330 [id number] [phone] (HP) Date:2035-47-30NY [address] [place], [place] [address]OZ: 04/05/2018 Secondary NOT GIVENUNK [place] Insurance:SELF PAY [facility] Number: Effective Repository Date:2018-04-05 04/04/2018 KATLYN Abreu Primary KATLYN Abreu [place] [id number] BACK Insurance:SUMMA DOMERDOB: Community [place] [facility] Number: [id number], [place] [id number] Repository [address]Rij: (330) Date:0096-00-34GR [phone] (HP) [address] [place] [phone]: 04/04/2018 Secondary NOT GIVENUNK [place] Insurance:SELF PAY [facility] Number: Effective Repository Date:2018-04-04 04/03/2018 KATLYN Abreu Primary KATLYN Abreu [place] [id number] BACK Insurance:SUMMA DOMERDOB: Community [place] [facility] Number: [id number], [place] [id number] Repository [address]Ths: (330) Date:2296-09-69PJ [phone] (HP) [address] [phone]: 04/03/2018 Secondary NOT GIVENUNK [place] Insurance:SELF PAY [facility] Number: Effective Repository Date:2018-04-03 12/17/2017 KATLYN N Primary KATLYN N [place] [id number] BACK Insurance:SUMMA DOMERDOB: [facility]ARE[facility] Centery Number: [id number], [place] [id number] Repository [address]Ncz: (330) Date:1141-53-01NW [phone] (HP) [address] [phone]: 12/17/2017 Secondary NOT GIVENUNK [place] Insurance:SELF PAY [facility] Number: Effective Repository Date:2017-12-17 12/06/2017 KATLYN N Primary KATLYN N [place] [id number] BACK Insurance:SUMMA DOMERDOB: [facility] Number: [id number], [place] [id number] Repository [address]Wmv: (330) Date:3857-91-68WI [phone] (HP) [address] [phone]: 12/06/2017 Secondary NOT GIVENUNK [place] Insurance:SELF PAY [facility] Number: Effective Repository Date:2017-12-06 12/05/2017 KATLYN N Primary KATLYN N [place] [id number] BACK Insurance:SUMMA DOMERDOB: [facility] Number: [id number], [place] [id number] Repository [address]Hgk: (330) Date:4889-01-23CS [phone] (HP) [address] [phone]: 12/05/2017 Secondary NOT GIVENUNK [place] Insurance:SELF PAY [facility] Number: Effective Repository Date:2017-11-28 12/05/2017 KATLYN Abreu Primary NOT GIVENUNK [place] [id number] BACK Insurance:SELF PAY [place] Number: Effective Repository [address]Bln: (330) Date:2017-12-05 [phone] (HP) 10/09/2017 Katlyn Abreu Primary NOT GIVENUNK Jez [id number] Back Insurance:SELF PAY [place] Number: Effective Repository [address]Ruk: (330) Date:2017-10-09 [phone] (HP) 08/19/2017 KATLYN Abreu Primary [facility]LYN [facility]breu [facility]: [facility] MEDICARE HMOPolicy [id number] Repository BACK [place] Number: [address] [place], [place] [id number] [place] [address]Ayu: (330) Date:2017-08-01 - [place], [place] [id number]: (330) (HP)Tel: (999) Name:[facility] Box [facility]86[address] [phone] (WP) [address], [place] (HP)Tel: (000) [phone]: (WP) [phone] 08/02/2017 KATLYN Abreu Primary KATLYN Abreu [facility] Insurance:SUMMACARE DOMERDOB: [facility] [id number] MEDICARE HMOPolicy [id number] Repository BACK [place] Number: [address] [place], [place] [id number] [place] [address]Xyk: (330) Date:2017-08-02 - [place], [place] [phone] [address]Kka: (330) (HP)Tel: ([phone]) Name:[facility] [phone] (WP) [address], [place] (HP)Tel: (000) [phone]: (WP) [phone] 08/02/2017 Secondary [facility] Insurance:[facility] OF [facility]: [facility] Number: [id number] Repository [id number] 17 BACK Date:2017-08-02 - [place] [id number] [place], [place] Name:ESTER Suh [address]Qyy: ([phone]) [id number], [place] [phone]: (999) (HP) [phone] (WP) 06/27/2017 KATLYN N Primary [facility]: Insurance:[facility]: [facility] [id number] MEDICARE HMOPolicy [id number] Repository [facility] Number: [address] [place], [place] [id number] [place], [place] [address]Coh: (330) Date:2017-06-27 [address]Cyz: [id number] [phone] (HP)Tel: ([phone]) Name:MARTA Suh (HP) (WP) [address], [place] [phone] (WP) [phone]: 06/27/2017 Secondary [facility] Insurance:MEDICAID OF [facility]: [facility] Number: [id number] Repository [id number] 17 BK [place] Date:2017-06-27 - [facility] [place] [id number] [address]Kwt: (330) Name:[facility]ER [facility] [phone] [id number], [place] (HP)Tel: (000) [phone]: (WP) [phone]
== END 2018-05-02 08:53 | disposition home or self-care (01) ==
LOC: EN 06:18 → AC 06:19
PROVIDERS: Family Provider Family Medicine; PCP Family Medicine; Referring Provider Surgery; Visit Provider Surgery
PROC: 0DJD8ZZ Inspection of Lower Intestinal Tract, Via Natural or Artificial Opening Endoscopic (ICD-10-PCS; CPT 45378; principal; 2018-05-02 07:25)
DX: Z12.11 Encounter for screening for malignant neoplasm of colon (principal); E06.9 Thyroiditis, unspecified; I10 Essential (primary) hypertension; Z79.82 Long term (current) use of aspirin; Z79.899 Other long term (current) drug therapy
CPT/HCPCS: G0121; J7120

== ENCOUNTER → 2018-12-03 | Outpatient (CLI) | payer MEDICARE, SELFPAY ==
[2018-12-03 10:00] VITALS: BMI 23.0
[2018-12-03 12:26] LABS: Hematocrit 44.3 % (40-54); Mean Corp Hgb Conc 31.6 g/dL (32-36); Mean Corpuscular Hgb 29.8 pg (27.0-32.0); Mean Corpuscular Volume 94.3 fL (80-94); Platelet Count 190 K/mm3 (150-450); RBC Distribution Width CV 13.2 % (11.6-14.6); RBC Distribution Width SD 46.3 fl (35.1-43.9); White Blood Count 6.4 K/mm3 (4.4-11.0)
[2018-12-03 12:46] LABS: Anion Gap 7 (5-15); BUN 23 mg/dL (7-18); BUN/Creat Ratio 18.9 RATIO (10-20); Calcium,Total 8.4 mg/dL (8.5-10.1); Chloride 110 mmol/L (98-107); Creatinine, Serum 1.22 mg/dL (0.70-1.30); EST Glomerular Filtration Rate 62 mL/min (>60); Est Glom Filt Rate - Afr Amer 75 mL/min (>60); Glucose 109 mg/dL (74-106); PSA,Total - Annual Screen 1.16 ng/mL (0.00-4.00); Potassium 4.7 mmol/L (3.5-5.1); Sodium Level 144 mmol/L (136-145); Thyroid Stim Hormone (TSH) 2.15 uIU/mL (0.358-3.74)
== END | disposition home or self-care (01) ==
LOC: BIMLAB 10:15
PROVIDERS: Family Provider Family Medicine; PCP Family Medicine; Visit Provider Nurse Practitioner Family
DX: E03.9 Hypothyroidism, unspecified (principal); I10 Essential (primary) hypertension; N40.0 Benign prostatic hyperplasia without lower urinary tract symptoms; Z12.5 Encounter for screening for malignant neoplasm of prostate
CPT/HCPCS: 36415; 80048; 84153; 84443; 85027; G0103

== ENCOUNTER → 2019-03-18 08:19 | Outpatient (CLI) | payer MEDICARE, SELFPAY ==
--- NOTE | 2019-03-17 | LES_PTH ---
PATIENT: KATLYN [facility]ORGES [facility] U[facility][id number] AGE/SX: 80/M ROOM: RE03/18/[address]: Dr. Omer Camacho DO : 1945 BED: DIS: SPEC #: [id number] RECD: 03/18/19 12:11 STATUS: JARAD LEVON #: [id number] ISABEL: 03/17/19 00:[address]: Omer Camacho DEPT: SURGICAL PATHOLOGY RECD BY: Fabian Gee Tissues: Skin of scalp, NOS Procedures: Surgery Specimen Level IV HEADER OPERATION: Surgical excision lesion 6 mm scalp PRE-OP DIAGNOSIS: Seborrheic keratosis, inflamed TISSUE SUBMITTED: 6 mm scalp MICROSCOPIC DIAGNOSIS 6 mm scalp lesion, excisional biopsy: Inflamed actinic keratosis with moderate to severe atypia, hypertrophic type. Solar elastosis. Negative for malignancy. See comment. LAVONNE:carlos 03/19/19 COMMENT Correlation with clinical findings and appropriate follow up are necessary. Case has been reviewed in consultation with Dr. York who concurs with the above diagnosis. IDC:AM MICROSCOPIC DESCRIPTION Slides are reviewed. GROSS DESCRIPTION Received is one container labeled with the patient's name and not further designated. The specimen consists of a piece of robbins-white skin measuring 1 x 0.7 cm and 0.2 cm in thickness. The specimen is inked and submitted entirely in one cassette. It will be sectioned at the time of embedding. / SJ:carlos 03/18/19 TC:5 CPT: 12122
[2019-03-17 16:23] VITALS: BMI 24.3
== END ==
PROVIDERS: Family Provider Family Medicine; PCP Family Medicine; Visit Provider Family Medicine
DX: L82.0 Inflamed seborrheic keratosis (principal)
CPT/HCPCS: 88305

== ENCOUNTER → 2019-10-02 09:02 | Outpatient (CLI) | payer MEDICARE, SELFPAY ==
[2019-03-17 16:23] VITALS: BMI 24.3
--- NOTE | 2019-10-02 09:11 | RAD_ITS ---
PROCEDURE: Fluoroscopic guided Hip Injection DATE: October 02, 2019. INDICATION: Male, 74 years old. Chronic left hip pain. PHYSICIAN: Lucian Willson M.D. MEDICATIONS: 6 mg of betamethasone and 3 cc of 1% lidocaine. 2% lidocaine administered subcutaneously for local anesthesia. ACCESS SITE: Left hip. NEEDLE: 22-gauge spinal needle. FLUOROSCOPY TIME (if supplied): (0:45) minutes/seconds FINDINGS: The risks, benefits, and alternatives to the procedure were explained to the patient. The specific risks of bleeding, infection, and neurovascular injury were detailed and accepted. Witnessed informed consent was obtained. A 22-gauge spinal needle was positioned under radiographic fluoroscopic localization. Approximately 2 cc of Isovue-300 instilled for localization purposes. Medication was then injected. The patient tolerated the procedure well without any immediate complications. RAD/Inj/Asp Grzegorz Jt Should/Hip/Knee IMPRESSION: 1. Successful fluoroscopic guided hip injection. Electronically Signed: Lucian Willson, at 9:56 EDT , Service support ,
== END ==
PROVIDERS: PCP Family Medicine; Referring Provider Specialist; Visit Provider Specialist
DX: M16.12 Unilateral primary osteoarthritis, left hip (principal)
CPT/HCPCS: 20610; 77002; Q9967; J0702

== ENCOUNTER → 2020-01-12 | Outpatient (CLI) | payer MEDICARE, SELFPAY ==
[2020-01-12 13:17] VITALS: BMI 24.3
[2020-01-12 15:13] LABS: Hematocrit 43.1 % (40-54); Mean Corp Hgb Conc 32.5 g/dL (32-36); Mean Corpuscular Hgb 30.3 pg (27.0-32.0); Mean Corpuscular Volume 93.3 fL (80-94); Mean Platelet Vol. 10.8 fl (6.2-12.0); Platelet Count 229 K/mm3 (150-450); RBC Distribution Width CV 13.3 % (11.6-14.6); RBC Distribution Width SD 45.2 fl (35.1-43.9); Red Blood Count 4.62 M/mm3 (4.6-6.2); White Blood Count 7.1 K/mm3 (4.4-11.0)
[2020-01-12 16:11] LABS: Anion Gap 2 (5-15); BUN 32 mg/dL (7-18); BUN/Creat Ratio 25.4 RATIO (10-20); Chloride 109 mmol/L (98-107); Creatinine, Serum 1.26 mg/dL (0.70-1.30); EST Glomerular Filtration Rate 59 mL/min (>60); Est Glom Filt Rate - Afr Amer 72 mL/min (>60); Glucose 93 mg/dL (74-106); Potassium 4.8 mmol/L (3.5-5.1); Sodium Level 142 mmol/L (136-145); T4 Free Direct 1.36 ng/dL (0.76-1.46); Thyroid Stim Hormone (TSH) 0.97 uIU/mL (0.358-3.74)
== END | disposition home or self-care (01) ==
LOC: BIMLAB 13:55
PROVIDERS: PCP Family Medicine; Referring Provider Family Medicine; Visit Provider Family Medicine
DX: I34.1 Nonrheumatic mitral (valve) prolapse (principal); R41.9 Unspecified symptoms and signs involving cognitive functions and awareness
CPT/HCPCS: 36415; 80048; 84439; 84443; 85027

== ENCOUNTER 2020-03-09 05:36 | Day surgery (SDC) | payer MEDICARE, SELFPAY ==
[2020-01-12 13:17] VITALS: BMI 24.3
[2020-02-19 11:50] LABS: Absolute Lymphocyte Count 1.52 X10^3/uL (0.83-4.51); Absolute Neutrophil Count 6.3 X10^3/uL (2.0-7.7); Basophil# 0.04 X10^3/uL; Basophil% 0.4 % (0-1); Eosinophil# 0.09 X10^3/uL; Hematocrit 47.5 % (40-54); Hemoglobin 15.1 g/dL (13.0-16.5); Lymphocyte # 1.52 X10^3/ul (4.0); Lymphocyte % 17.1 % (19-41); Mean Corp Hgb Conc 31.8 g/dL (32-36); Mean Corpuscular Hgb 29.9 pg (27.0-32.0); Mean Corpuscular Volume 94.1 fL (80-94); Mean Platelet Vol. 10.8 fl (6.2-12.0); Monocyte# 0.96 X10^3/uL; Monocyte% 10.8 % (0-10); NRBC Flagged by Analyzer 0 % (0-5); Neutrophil # 6.26 X10^3/uL (2.7-7.7); Neutrophil % 70.3 % (47-70); Platelet Count 224 K/mm3 (150-450); RBC Distribution Width CV 13.4 % (11.6-14.6); RBC Distribution Width SD 46.4 fl (35.1-43.9); Red Blood Count 5.05 M/mm3 (4.6-6.2); White Blood Count 8.9 K/mm3 (4.4-11.0)
[2020-02-19 12:28] LABS: Anion Gap 4 (5-15); BUN 33 mg/dL (7-18); Chloride 107 mmol/L (98-107); Creatinine, Serum 1.32 mg/dL (0.70-1.30); EST Glomerular Filtration Rate 56 mL/min (>60); Est Glom Filt Rate - Afr Amer 68 mL/min (>60); Glucose 89 mg/dL (74-106); Potassium 5.3 mmol/L (3.5-5.1); Sodium Level 140 mmol/L (136-145)
--- NOTE | 2020-02-19 12:54 | PCM.HP.BLA ---
History and Physical History and Physical [facility] Patient Name: Anoop Rockwell : 1945 From: GIOVANNI BEDOYA PA-C DATE OF SURGERY: 03/09/2020 SCHEDULED PROCEDURE: left total hip arthroplasty HISTORY OF PRESENT ILLNESS: Preoperative history and physical exam was performed on February 19, 2020. This is a 75-year-old male who has been having ongoing pain in the left hip for nearly 1 year. His pain can reach 10/10 with activities. Patient states his pain has been constant, stabbing, sore. Pain is increased going up and down stairs, sitting, walking. Patient does have start up pain. He does get left buttock pain. He denies any numbness and tingling. He does have history of low back pain treated with injections and chiropractic treatments. Pain does not awaken him at night. Patient has attempted previous intra-articular left hip injection on October 02, 2019 which only gave him temporary relief for several hours. He has been on oral nonsteroidal anti-inflammatories which has helped temporarily. He has been through physical therapy and home exercises with no relief in symptoms. He denies previous surgery on his left hip. Patient has noted that it is been more difficult to get dressed with his socks and shoes due to the pain. It has affected his ability to walk and exercise. After failing conservative measures and discussing treatment options with Dr. Jessee Bonilla, the patient does wish to proceed with a left total hip arthroplasty. We are obtaining surgical clearance from the primary care physician Dr. Camacho. He does have medical history pertinent for Alzheimer's. He denies any recent chest pain, shortness of breath, fevers chills, or recent infections. REVIEW OF SYSTEMS: ROS: Const: Denies anorexia, anxiety, change in appetite, fever and weight change,hard of hearing, and vision problems. ENMT: Reports hearing loss. CV: Denies chest pain, heart murmur, irregular heartbeat and peripheral vascular disease. Resp: Denies asthma, cough, pneumonia, sleep apnea, shortness of breath, tuberculosis and wheezing. GI: Denies constipation, diarrhea, heartburn, nausea, bloody stools and vomiting, and difficulty swallowing. : Denies incontinence. Musculo: Denies leg swelling, trouble walking and weakness and limp. Skin: Denies Raynaud's, history of shingles and tattoo. Neuro: Denies ambulatory dysfunction, dizziness, numbness/tingling and tremor. Psych: Denies anxiety, depression, insomnia, mental illness and stress. Khoi/Lymph: Denies anemia, bleeding/bruising tendency and past transfusion. Reviewed, no changes. PAST MEDICAL HISTORY: Advance Care Plan: PMH: Medical Problems: Arthritis, Mitral Valve Prolapse, Alzheimers, Ataxia Accidents: None Surgical Hx: Shoulder - (1993) 1/2 IN. removed from each shoulder Knee Replacement - LT UNI DR DAILEY RT Knee Uni - (07/06/2010) KAT @ [facility] Anesthesia Complications: None Assistive Devices: Glasses, Hearing Aid Reviewed and updated. SOCIAL HISTORY: SH: Marital: .Occupation: Retired.Work Status: Retired.Hand Dominance: Right-handed. Personal Habits: Cigarette Use: Never.Smokeless Tobacco: Never Used Smokeless Tobacco.E-Cigarette Use: Never used.Alcohol: Denies use.Drug Use: Denies Use.Enjoy Exercising: Exercises 1-3 X/Week. Reviewed and updated. VITALS: Ht: 67.5 Wt: 161lb Wt k.030 BMI: 24.8 BP: 111/66 Pulse: 60 Resp: 16 T: 97.1 T: 36.2C Pain Level: 7 ALLERGIES: Aricept MEDICATIONS: Oxycodone HCL 5 mg 1-2 tab by mouth every 4 hours, Promethazine HCL 12.5 mg 1-2 tablets by mouth every 6 hours, Famotidine 20 mg 1 by mouth every day, Meloxicam 15 mg take 1 tablet by mouth every day, Memantine HCL 10 mg 1po qday, Metoprolol Tartrate 50 mg 1po bid, Levothyroxine Sodium 75 mcg 1po qday, Tamsulosin HCL 0.4 mg 1po qday PRE-OP EXAM: General appearance:NORMAL Other: Eyes: Conjunctivae and lids: NORMAL Pupils: ERR Ears, Nose, Mouth, and Throat: NORMAL Other: Inspection of lips, teeth and gums: NORMAL Other: Neck: Examination of neck: no masses noted. Respiratory: Assessment of respiratory effort: NORMAL Other: Auscultation of lungs: clear to auscultation no wheezes, rhonchi or rales. Cardiovascular: Auscultation of heart: regular rate and rhythm, no murmurs, gallops or rubs. Exam of carotid arteries: NORMAL Other: Gastrointestinal: Exam of abdomen: soft, nontender, nondistended bowel sounds present. EXAMINATION: Patient does walk with an antalgic gait. Left hip is cool to touch without erythema. Patient has left hip flexion 110, internal rotation 12, external rotation 40. Patient has increased pain with Kenji's testing. Sensation intact to light touch. Neurovascularly intact. IMAGING STUDIES: Left hip x-rays reveal mild to moderate joint space narrowing. There is no acute findings for fracture or bony lesions. 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 IMPRESSION: 1. Left hip osteoarthritis 2. Alzheimer's disease 3. Mitral valve prolapse PLAN: Dr. Jessee Bonilla did discuss and review with the patient all treatment options including surgical versus nonsurgical options. Patient does wish to proceed with the above-stated procedure. Potential risks, benefits, and complications of the procedure were discussed in detail including but not limited to , infection, nerve and blood vessel damage, persistent pain, numbness, tingling, paresthesias, blood clot, pulmonary embolism, and requirement for possible further surgery. The patient expressed full understanding and has no further questions for the doctor. Patient does agree to proceed with the above-stated procedure and has signed the surgery consent form. We discussed the current risks associated with COVID 19. This does include the risk of exposure while in the hospital. Patient was reassured local hospitals have low infection rates and are taking all necessary precautions to avoid exposure to patients. In addition, we discussed strategies that can be used to help limit exposure including those that limit the patient's time in the hospital. Also using strategies to limit the patient's need for continued inpatient services after being discharged from the hospital. Patient was notified that we will need to comply with any screening or testing the hospital wishes to perform or that surgery may be delayed for any positive results. This dictation was created using voice recognition software. Phonetic and/or grammatical errors may exist. ___ I have re-examined the patient. There are no clinical changes since date of exam. ___ See progress notes for changes. ___ Dictated on admission Date: Time: Signature:
[2020-02-23 11:19] LABS: Magnesium 2.5 mg/dL (1.6-2.6)
[2020-02-24 13:05] VITALS: BMI 24.3
--- NOTE | 2020-02-25 10:09 | EKG12_ITS ---
Test Reason : PRE OP Blood Pressure : / mmHG Vent. Rate : 050 BPM Atrial Rate : 050 BPM P-R Int : 226 ms QRS Dur : 088 ms QT Int : 444 ms P-R-T Axes : 064 054 057 degrees QTc Int : 404 ms Sinus bradycardia with 1st degree A-V block Otherwise normal ECG Confirmed by DEWAYNE BARAJAS, LOLLY ([id number]), newspaper copy editor AGATA SIMS ([id number]) on 02/29/2020 1:11:28 PM Referred By: Jessee Bonilla Confirmed By:DARREN BUCHANAN MD
[2020-03-09] VITALS (15 sets, daily range): BP systolic 90–118; BP diastolic 44–79; PULSE 58–71; RESP 16–18; TEMP 35.7–36.3; O2SAT 96–100; BMI 23.5
[2020-03-09] MEDS: Gabapentin 600 MG Tablet PO (06:18)
[2020-03-09] MEDS: Acetaminophen 500 MG Tablet 1000 MG PO ×2 (06:18→14:00)
[2020-03-09] MEDS: Lactated Ringers 1,000 ML 999 ML IV ×2 (06:19→09:40)
[2020-03-09 06:35] LABS: Bedside Glucose 89 mg/dL (70-110)
[2020-03-09] MEDS: Cefazolin 2 GM in 0.9% Normal Saline 100 ML IV (07:22)
[2020-03-09] MEDS: Lactated Ringers 1,000 ML 100 ML IV (07:35)
[2020-03-09] MEDS: dexAMETHasone 10 MG/ML Vial IV (08:00)
--- NOTE | 2020-03-09 08:05 | RAD_ITS ---
STUDY: X-RAY - PELVIS AND LEFT HIP REASON FOR EXAM: Left hip arthroplasty. TECHNIQUE: 3 intraoperative images of the pelvis and hip. COMPARISON: None. FINDINGS: There is a left hip arthroplasty without evidence of complication. Electronically Signed: Ambrosio Isbell MD at 15:25 EST Tel , Service support , RAD/Hip 1 view with Pelvis
--- NOTE | 2020-03-09 08:50 | PCM.OPRPT ---
Report of Operation Date of Procedure: 03/09/20 Pre-Operative Diagnosis: Left hip primary osteoarthritis Post-Operative Diagnosis: Left hip primary osteoarthritis Surgery/Procedure Performed:: Left hip direct anterior total hip replacement, minimally invasive Description of Surgical Findings:: Stable hip with equal leg lengths coin machine supervisor: Margareth Tovar Type of Anesthesia:: Spinal Anesthesiologist: Joel Rdz Special Medications: 2 g Ancef, 1 g TXA at incision, 1 g TXA closure, 10 mg Decadron, joint cocktail (5 mg Duramorph, 30 mL of 0.5% Ropivicaine, 1000 units of epinephrine, 30 mg of Toradol) Specimen's removed: Bony cuts Estimated Blood Loss (mL): 150 Fluids Replaced: 700 Milliliters [id number] Description of Procedure: Components used: 1. Accolade 2 [place] femoral stem size 8 132? 2. Yaa trident 2 acetabular shell size 54 mm 3. [place] X3 polyethylene E 4. [place] Biolox delta 36mm, -5mm femoral head Brief history operative indications: 75 yo M who failed conservative measures for their hip osteoarthritis. X-rays were consistent with osteoarthritis including joint space narrowing, osteophyte formation and subchondral cysts. Total hip replacement was discussed with the patient with risks and benefits including but not limited to blood loss, DVTs, PEs, neurovascular damage, dislocation, general risks of anesthesia including loss of life. Patient demonstrated an understanding medical clearance is obtained the patient was consented for surgery. Procedure: On the date of procedure the patient's L hip was marked in the preoperative area. Patient was then taken back to the operating room where anesthesia assumed control of the C-spine and airway and administered anesthetic. Patient was transferred to the operating table and placed in the supine position. The hips were placed at the break of the bed and a sacral bump was placed. The L lower extremity was then prepped out in a sterile fashion using chlorhexidine while the surgeon scrubbed. The PA was vital in the positioning of the patient. Upon reentering the room the L lower extremity was draped in the standard orthopedic fashion and the incision was marked. A timeout was called and everyone agreed upon the side, the site, the procedure be performed, antibody given, and patient's identity. At this time incision was made through skin, subcutaneous tissue, and fat down to fascia. The fascia was then incised and the TFL was retracted laterally. A retractor was placed on the lateral border of the femoral neck. Attention was directed to the inferior portion of the approach and all crossing vessels were identified and appropriately coagulated. A retractor was then placed on the medial portion of the femoral neck. The anterior capsule was then cleared of all soft tissue and then H shaped capsulotomy was made. The retractors were then placed inside the capsule. The femoral neck was identified and a cleanup cut was made. At this time a power corkscrew was used to remove the femoral head. Attention was then turned toward the acetabulum where the soft tissues were appropriately retracted and the acetabulum was sequentially reamed to 54 mm. A 54 mm cup was then selected and impacted into place. Acetabular liner was impacted into place and locking mechanism was verified. The position of the acetabular cup was then verified under live fluoroscopy. Attention was then turned to the femur. Soft tissue releases on the medial and lateral femoral neck were appropriately done, the leg was externally rotated and lateralized. A Brice retractor was placed medially and proximally to the greater trochanter this allowed appropriate visualization and exposure of the femoral canal. Rongeour was then used to remove excess lateral bone. A canal finder and entry broach were used to open the proximal canal. Once we verified we were down the femoral canal we subsequently broached up to a size 8 femur. The appropriate neck was placed in the previously selected head was trialed with a -5 mm neck. Traction was pulled and the hip was reduced with internal rotation. Once it was appropriately reduced and stability was checked. There was minimal shuck, equal leg lengths and appropriate stability with hyperextension and external rotation as well as with 90? flexion and internal rotation. Fluoroscopy was then also used to verify the position of the components and leg lengths using the contralateral side for comparison. The trial components were then dislocated the proximal femur was again exposed and the components were removed from the wound. The final components were verified and opened. The wound was copiously irrigated out with normal saline. The acetabulum was checked for any residual debris. The final components were placed and impacted. Traction and internal rotation were again used to reduce the hip. After adequate reduction the hip remained stable with appropriate leg lengths. The final components were once again checked with live fluoroscopy and were found to be satisfactory. The wound was then copiously irrigated with normal saline once more, and hemostasis was obtained. Closure was then done using #1 Vicryl runner to close the fascia. A 2-0 vicryl interuppted sutures were used to close the subcutaneous skin. A 3-0 Monocryl and Steri-Strips were used for final skin closure. A Silverlon dressing was placed. Patient was awakened by anesthesia and transferred to the [facility]. Patient was then transferred to the PACU for recovery. Postoperative plan: Patient will get 24 hours postop antibiotics. Patient will get in-house physical therapy and will be weight-bear as tolerated. Patient will follow up in office in 2 weeks for a wound check and x-rays. Aspirin 81 mg twice daily. - Complications No intraoperative complications - Admit VTE Documentation VTE Present on Admission: No VTE Mechan Device Prophylaxis: SCD's, Thigh High RO Hose VTE Pharm Prophylaxis ordered?: Yes
--- NOTE | 2020-03-09 09:30 | RAD_ITS ---
STUDY: X-RAY - PELVIS AND LEFT HIP REASON FOR EXAM: Postop left hip arthroplasty. TECHNIQUE: 2 views of the pelvis and hip. COMPARISON: Intraoperative images obtained the same day. FINDINGS: There is postoperative gas in the soft tissues. Normal bilateral superior and inferior pubic rami. Normal pubic symphysis. Normal bilateral ischial tuberosities. There is a left hip arthroplasty without evidence of complication. RAD/Hip Min 2 Views (Portable) IMPRESSION: Uncomplicated left hip arthroplasty. Electronically Signed: Ambrosio Isbell MD at 15:24 EST Tel , Service support ,
[2020-03-09] MEDS: Lactated Ringers 1,000 ML 125 ML IV (13:07)
[2020-03-09] MEDS: Cefazolin 1 GM/50 ML BAG IV (13:07)
== END 2020-03-09 15:10 | disposition home health service (06) ==
LOC: SDC 05:37 → AC 05:49
PROVIDERS: Physician Assistant Surgical; PCP Family Medicine; Referring Provider Specialist; Visit Provider Specialist
PROC: (CPT 27284; principal; 2020-03-09 07:20)
DX: M16.12 Unilateral primary osteoarthritis, left hip (principal); I10 Essential (primary) hypertension; E78.00 Pure hypercholesterolemia, unspecified; G30.9 Alzheimer's disease, unspecified; F02.80 Dementia in other diseases classified elsewhere, unspecified severity, without behavioral disturbance, psychotic disturbance, mood disturbance, and anxiety; I34.1 Nonrheumatic mitral (valve) prolapse; Z79.1 Long term (current) use of non-steroidal anti-inflammatories (NSAID); Z79.899 Other long term (current) drug therapy; Z96.642 Presence of left artificial hip joint; Z20.828 Contact with and (suspected) exposure to other viral communicable diseases
CPT/HCPCS: 01214; 27130; 36415; 73501; 73502; 76000; 80048; 82962; 83735; 85025; 87081; 87426; 93005; 97162; C1776; C9803; J7120; A4216; J2405

== ENCOUNTER 2021-01-11 14:17 | Observation (INO) | payer MEDICARE, SELFPAY ==
[2020-07-22 16:16] VITALS: BMI 23.5
--- NOTE | 2020-12-29 08:58 | EKG12_ITS ---
Test Reason : PRE OP Blood Pressure : / mmHG Vent. Rate : 055 BPM Atrial Rate : 055 BPM P-R Int : 220 ms QRS Dur : 074 ms QT Int : 436 ms P-R-T Axes : 069 074 052 degrees QTc Int : 417 ms Sinus bradycardia with 1st degree A-V block Otherwise normal ECG Confirmed by EDGAR BARAJAS, CADEN ([id number]), marketing editor CHIOMA FREITAS ([id number]) on 12/30/2020 7:03:59 AM Referred By: Jessee Bonilla Confirmed By:CADEN HERNÁNDEZ MD
--- NOTE | 2020-12-29 08:58 | RAD_ITS ---
STUDY: X-RAY CHEST REASON FOR EXAM: Male, 75 years old. PREOP TECHNIQUE: PA and lateral views of the chest. COMPARISON: None. FINDINGS: Hyperinflation. The lungs are clear. Scattered calcified granulomas. There is no demonstrated pleural abnormality. Normal size heart. Calcified hilar lymph nodes. Normal visualized pulmonary arteries. Normal visualized aortic arch and descending thoracic aorta. There are diffuse degenerative changes of the visualized thoracic spine. Normal visualized ribs, clavicles, and shoulders. There is no demonstrated abnormality of the visualized soft tissue structures of the upper abdomen. RAD/Chest PA and Lateral IMPRESSION: Hyperinflation. No acute abnormality is seen. Electronically Signed: Lucian Willson MD at 13:33 EDT , Service support ,
[2020-12-29 11:07] LABS: Absolute Neutrophil Count 5.6 X10^3/uL (2.0-7.7); Basophil# 0.05 X10^3/uL; Basophil% 0.6 % (0-1); Eosinophils% 1.3 % (0-5); Hematocrit 44.8 % (40-54); Hemoglobin 14.1 g/dL (13.0-16.5); Lymphocyte % 16.5 % (19-41); Mean Corp Hgb Conc 31.5 g/dL (32-36); Mean Corpuscular Hgb 29.7 pg (27.0-32.0); Mean Corpuscular Volume 94.5 fL (80-94); Mean Platelet Vol. 10.9 fl (6.2-12.0); Monocyte# 0.81 X10^3/uL; Monocyte% 10.3 % (0-10); NRBC Flagged by Analyzer 0 % (0-5); Neutrophil # 5.58 X10^3/uL (2.7-7.7); Neutrophil % 70.8 % (47-70); Platelet Count 201 K/mm3 (150-450); RBC Distribution Width CV 13.6 % (11.6-14.6); RBC Distribution Width SD 47.4 fl (35.1-43.9); Red Blood Count 4.74 M/mm3 (4.6-6.2); White Blood Count 7.9 K/mm3 (4.4-11.0)
[2020-12-29 11:36] LABS: Anion Gap 4 (5-15); BUN 31 mg/dL (7-18); BUN/Creat Ratio 27.7 RATIO (10-20); Calcium,Total 8.8 mg/dL (8.5-10.1); Chloride 110 mmol/L (98-107); Creatinine, Serum 1.12 mg/dL (0.70-1.30); EST Glomerular Filtration Rate 68 mL/min (>60); Est Glom Filt Rate - Afr Amer 82 mL/min (>60); Glucose 94 mg/dL (74-106); Potassium 4.6 mmol/L (3.5-5.1); Sodium Level 141 mmol/L (136-145)
[2020-12-29 11:48] LABS: Magnesium 2.3 mg/dL (1.6-2.6); Thyroid Stim Hormone (TSH) 1.42 uIU/mL (0.358-3.74)
[2021-01-11] VITALS (15 sets, daily range): BP systolic 102–146; BP diastolic 47–85; PULSE 58–83; RESP 16–18; TEMP 36–36.8; O2SAT 97–100; BMI 22.6
--- NOTE | 2021-01-11 06:57 | OP.PCM_ITS ---
Report of Operation Date of Procedure: 01/11/21 Pre-Operative Diagnosis: Right hip primary osteoarthritis Post-Operative Diagnosis: Right hip primary osteoarthritis Surgery/Procedure Performed:: Right minimally invasive direct anterior total hip replacement Description of Surgical Findings:: Stable hip with equal leg length Surgeon: Jessee Bonilla caser shoe parts: Raul Wright Type of Anesthesia: Spinal Anesthesiologist: Roe Killian Special Medications: 2 g Ancef, 1 g TXA at incision, 1 g TXA closure, 10 mg Decadron, joint cocktail (5 mg Duramorph, 30 mL of 0.5% Ropivicaine, 1000 units of epinephrine, 30 mg of Toradol) Specimen's removed: Bony cuts Estimated Blood Loss (mL): 150 Fluids Replaced: 1200 mL crystalloid Description of Procedure: Components used: 1. Accolade 2 [place] femoral stem size 7 127? 2. [place] trident 2 acetabular shell size 56 mm 3. Yaa X3 polyethylene F 4. Yaa Biolox delta 36mm, -5mm femoral head Brief history operative indications: 75 yo M who failed conservative measures for their hip osteoarthritis. X-rays were consistent with osteoarthritis including joint space narrowing, osteophyte formation and subchondral cysts. Total hip replacement was discussed with the patient with risks and benefits including but not limited to blood loss, DVTs, PEs, neurovascular damage, dislocation, general risks of anesthesia including loss of life. Patient demonstrated an understanding medical clearance is obtained the patient was consented for surgery. Procedure: On the date of procedure the patient's right hip was marked in the preoperative area. Patient was then taken back to the operating room where anesthesia assumed control of the C-spine and airway and administered anesthetic. Patient was transferred to the operating table and placed in the supine position. The hips were placed at the break of the bed and a sacral bump was placed. The right lower extremity was then prepped out in a sterile fashion using chlorhexidine while the surgeon scrubbed. The PA was vital in the positioning of the patient. Upon reentering the room the right lower extremity was draped in the standard orthopedic fashion and the incision was marked. A timeout was called and everyone agreed upon the side, the site, the procedure be performed, antibody given, and patient's identity. At this time incision was made through skin, subcutaneous tissue, and fat down to fascia. The fascia was then incised and the TFL was retracted laterally. A retractor was placed on the lateral border of the femoral neck. Attention was directed to the inferior portion of the approach and all crossing vessels were identified and appropriately coagulated. A retractor was then placed on the medial portion of the femoral neck. The anterior capsule was then cleared of all soft tissue and then H shaped capsulotomy was made. The retractors were then placed inside the capsule. The femoral neck was identified and a cleanup cut was made. At this time a power c orkscrew was used to remove the femoral head. Attention was then turned toward the acetabulum where the soft tissues were appropriately retracted and the acetabulum was sequentially reamed to 56 mm. A 56 mm cup was then selected and impacted into place. Acetabular liner was impacted into place and locking mechanism was verified. The position of the acetabular cup was then verified under live fluoroscopy. Attention was then turned to the femur. Soft tissue releases on the medial and lateral femoral neck were appropriately done, the leg was externally rotated and lateralized. A Brice retractor was placed medially and proximally to the greater trochanter this allowed appropriate visualization and exposure of the femoral canal. Rongeour was then used to remove excess lateral bone. A canal finder and entry broach were used to open the proximal canal. Once we verified we were down the femoral canal we subsequently broached up to a size 7 femur. The appropriate neck was placed in the previously selected head was trialed with a -5 mm neck. Traction was pulled and the hip was reduced with internal rotation. Once it was appropriately reduced and stability was checked. There was minimal shuck, equal leg lengths and appropriate stability with hyperextension and external rotation as well as with 90? flexion and internal rotation. Fluoroscopy was then also used to verify the position of the components and leg lengths using the contralateral side for comparison. The trial components were then dislocated the proximal femur was again exposed and the components were removed from the wound. The final components were verified and opened. The wound was copiously irrigated out with normal saline. The acetabulum was checked for any residual debris. The final components were placed and impacted. Traction and internal rotation were again used to reduce the hip. After adequate reduction the hip remained stable with appropriate leg lengths. The final components were once again checked with live fluoroscopy and were found to be satisfactory. The wound was then copiously irrigated with normal saline once more, and hemostasis was obtained. Closure was then done using #1 Vicryl runner to close the fascia. A 2-0 vicryl interuppted sutures were used to close the subcutaneous skin. A 3-0 Monocryl and Steri-Strips were used for final skin closure. A Silverlon dressing was placed. Patient was awakened by anesthesia and transferred to the [facility]. Patient was then transferred to the PACU for recovery. During the course of the procedure the physician sanitation inspector (PE) played a vital role. Their intimate knowledge of my steps in the procedure aided in safe and expedient completion of the procedure. The PE played a vital rolls in positioning particularly in obtaining the appropriate positioning of the sacral bump. The PE was also vital in the retraction of soft tissues during the exposure and especially the femoral work as this is a vital part of the pr ocedure to prevent complications and fractures. The PE was also vital and protecting soft tissues during times of bony cuts and reaming. He also played a vital role in closure with my direct supervision. The PE was also important during reduction and dislocation of the joint and trials intraoperatively. Postoperative plan: Patient will get 24 hours postop antibiotics. Patient will get in-house physical therapy and will be weight-bear as tolerated. Patient will follow up in office in 2 weeks for a wound check and x-rays. Aspirin 81 mg twice daily. Complications No intraoperative complications Admit VTE Documentation VTE Present on Admission: No VTE Mechan Device Prophylaxis: SCD's and Thigh High RO Hose VTE Pharm Prophylaxis ordered?: Yes
[2021-01-11 08:21] LABS: Bedside Glucose 63 mg/dL (70-110)
[2021-01-11] MEDS: Acetaminophen 500 MG Tablet 1000 MG PO ×3 (09:11→22:59)
[2021-01-11] MEDS: Gabapentin 600 MG Tablet PO (09:11)
[2021-01-11] MEDS: Celecoxib 200 MG Capsule 400 MG PO (09:11)
[2021-01-11] MEDS: Lactated Ringers 1,000 ML 100 ML IV (09:14)
[2021-01-11] MEDS: Cefazolin 2 GM in 0.9% Normal Saline 100 ML IV (09:55)
--- NOTE | 2021-01-11 10:35 | RAD_ITS ---
STUDY: X-RAY - PELVIS AND RIGHT HIP REASON FOR EXAM: Intraoperative fluoroscopy for right hip arthroplasty. TECHNIQUE: 4 intraoperative images of the pelvis and hip. COMPARISON: Radiographs 03/09/2020. FINDINGS: There is a right hip arthroplasty without evidence of complication. 7.3 seconds of fluoroscopy time was used. Electronically Signed: Ambrosio Isbell MD at 13:14 EDT Tel , Service support , RAD/Hip 1 view with Pelvis
[2021-01-11] MEDS: Lactated Ringers 1,000 ML 999 ML IV (10:45)
--- NOTE | 2021-01-11 11:45 | RAD_ITS ---
STUDY: X-RAY - PELVIS AND RIGHT HIP REASON FOR EXAM: Postoperative evaluation of right hip arthroplasty. TECHNIQUE: 2 views of the pelvis and hip. COMPARISON: Radiographs 03/09/2020. FINDINGS: There is postoperative gas in the soft tissues. Normal bilateral superior and inferior pubic rami. Normal pubic symphysis. Normal bilateral ischial tuberosities. There is a right hip arthroplasty without evidence of complication. RAD/Hip Min 2 Views (Portable) IMPRESSION: Uncomplicated right hip arthroplasty. Electronically Signed: Ambrosio Isbell MD at 12:40 EDT Tel , Service support ,
[2021-01-11] MEDS: Lactated Ringers 1,000 ML 125 ML IV (12:33)
--- NOTE | 2021-01-11 15:23 | PCM.PN.HOSP ---
Documented by User: Jaina Lacey NP, NET SOFTWARE ENGINEER-C 01/11/21 15:45 Subjective Subjective Patient seen and examined. Underwent right total hip replacement. Denies pain currently. at bedside. Patient denies other symptoms or complaints. Objective Data Objective Data Vital Signs: Vital Signs Temp Pulse Resp BP Pulse Ox 96.8 F L 68 16 114/51 L 97 01/11/21 15:12 01/11/21 15:12 01/11/21 15:12 01/11/21 15:12 01/11/21 15:12 Oxygen Flow Rate (L/min) 6 Oxygen Delivery Method Room Air Weight: 153 lb 3.54 oz Body Mass Index (BMI) 22.6 Intake & Output: Intake and Output for Last 24 Hours 01/09/21 01/10/21 01/11/21 23:59 23:59 23:59 Intake Total 2434 / 2434 Balance 2434 / 2434 Lab / Micro Data Result Diagrams: 12/29/20 09:42 12/29/20 09:42 Labs: Laboratory Results - last 24 hr 01/11/21 08:03: POC Glucose 63 L Micro: Microbiology 12/29/20 09:42 Swab (Method) Nasal Screen MRSA/MSSA - Final Radiography Diagnostic Testing: Radiology Impression Hip/Pelvis X-Ray 01/11/21 10:35 Hip X-Ray 01/11/21 11:45 IMPRESSION: Uncomplicated right hip arthroplasty. Electronically Signed: Ambrosio Isbell MD at 12:40 EDT Tel , Service support , Physical Exam Const alert and no apparent distress Orientation / Consciousness: awake HEENT normocephalic and moist oral mucous membranes Eyes PERRL, EOMs intact bilaterally and conjunctivae normal Neck no lymphadenopathy Resp normal respiratory effort and clear to auscultation bilaterally Cardio regular rate, regular rhythm and no murmurs Peripheral Pulses: pulses 2+ throughout GI normal to inspection, nondistended, normoactive bowel sounds, non-tender and non-distended Extremity normal to inspection Skin no rashes or lesions noted Skin Narrative: Postop dressing intact. Lesions: no lesions Rashes: no rashes Trauma: no lacerations or abrasions Neuro CN's II-XII intact bilaterally, no focal motor deficits, no sensory deficits noted and deep tendon reflexes 2+ bilaterally Psych mental status grossly normal and affect normal Assessment & Plan Assessment/Plan (1) Degenerative joint disease of right hip: PLAN: 1. Right hip osteoarthritis status post right total hip replacement-management per orthopedic medicine. PT/OT. As needed pain regimen. reports patient had left hip replaced in the past and went home the same day, did well with outpatient therapy. She plans on taking him home with outpatient therapy upon this discharge as well. 2. Alzheimer's dementia-no known behavioral disturbance history. On memantine. 3. Hypothyroidism-continue Synthroid regimen. 4. Hypertension/mitral valve prolapse-on metoprolol 5. BPH-continue Flomax. DVT prophylaxis-aspirin twice daily per Ortho recommendations This patient was seen by LIZZETH Hart under the supervision of Dr. Chacon. Documented by User: Dr. Jessica Chacon MD 01/11/21 16:33 Objective Data Lab / Micro Data Result Diagrams: 12/29/20 09:42 12/29/20 09:42 Charges/Coding Addendum Addendum: This patient was seen in conjunction with Jania Lacey NP. I have independently interviewed and examined the patient and reviewed pertinent historical, laboratory, and other data. I have reviewed her note and concur with her documentation We were consulted for postop medical management. Patient underwent elective right minimally invasive direct anterior total hip replacement. PMHx includes hypothyroidism, mitral valve prolapse. He was seen in the immediate post-op period. He denied any pain. His pain is 2 out of 10. Denied any dizziness or chest pain. Vitals, stable, not on oxygen Physical Exam: Gen: Comfortable, not pale, not jaundiced CVS:HS I +II, regular, no murmurs RESP: Diminished at lung bases GI: BS present and normal, soft, nontender, no palpable organs EXT: Right hip passive:, Tender ASSESSMENT: 1. Postop day #0 status post right minimally invasive direct anterior total hip replacement 2. Hypothyroidism 3. BPH 4. Mitral valve prolapse 5. Dementia Plan: Continue with pain regimen Other surgical recommendation per orthopedics team Home meds reviewed Reviewed patient's recent primary care note. Noted that patient's echo has shown EF of 55 to 60% Visit Charges Inpatient E&M: 84704 Init Hosp L2
[2021-01-11] MEDS: Aspirin 81 MG TAB.CHEW PO (16:59)
[2021-01-11] MEDS: Famotidine 20 MG Tablet PO (16:59)
[2021-01-11] MEDS: Cholecalciferol (VIT D3) 25 MCG TABLET (1,000 UNITS) PO (16:59)
[2021-01-11] MEDS: Cefazolin 1 GM/50 ML BAG IV (17:00)
[2021-01-11] MEDS: Senna/Docusate Sodium 1 Tablet 2 TABLET PO (23:01)
[2021-01-11] MEDS: Metoprolol Tartrate 25 MG Tablet PO (23:02)
[2021-01-11] MEDS: Memantine Hydrochloride 10 MG Tablet PO (23:02)
[2021-01-11] MEDS: Tamsulosin HCl 0.4 MG Capsule PO (23:36)
[2021-01-12] MEDS: Cefazolin 1 GM/50 ML BAG IV (01:00)
[2021-01-12] MEDS: 0.9% Saline Lock 10 ML Syringe IV ×2 (01:00→05:48)
[2021-01-12 04:37] VITALS: BP 139/58; PULSE 57; RESP 16; TEMP 36.1; O2SAT 98
[2021-01-12] MEDS: Acetaminophen 500 MG Tablet 1000 MG PO ×2 (05:47→13:49)
[2021-01-12] MEDS: Levothyroxine 75 MCG Tablet PO (05:47)
[2021-01-12 06:19] LABS: Hematocrit 43.5 % (40-54); Hemoglobin 14.5 g/dL (13.0-16.5); Mean Corp Hgb Conc 33.3 g/dL (32-36); Mean Corpuscular Hgb 30.5 pg (27.0-32.0); Mean Corpuscular Volume 91.6 fL (80-94); Mean Platelet Vol. 10.1 fl (6.2-12.0); Platelet Count 233 K/mm3 (150-450); RBC Distribution Width CV 13.8 % (11.6-14.6); RBC Distribution Width SD 47.3 fl (35.1-43.9); Red Blood Count 4.75 M/mm3 (4.6-6.2); White Blood Count 21.2 K/mm3 (4.4-11.0)
[2021-01-12 06:48] LABS: Anion Gap 7 (5-15); BUN 27 mg/dL (7-18); BUN/Creat Ratio 21.4 RATIO (10-20); Calcium,Total 8.6 mg/dL (8.5-10.1); Chloride 108 mmol/L (98-107); Creatinine, Serum 1.26 mg/dL (0.70-1.30); EST Glomerular Filtration Rate 59 mL/min (>60); Est Glom Filt Rate - Afr Amer 72 mL/min (>60); Glucose 116 mg/dL (74-106); Potassium 4.6 mmol/L (3.5-5.1); Sodium Level 141 mmol/L (136-145)
[2021-01-12 09:01] VITALS: BP 123/60; PULSE 61; RESP 17; TEMP 36.6; O2SAT 100
[2021-01-12] MEDS: Ensure Surgery 237 ML LIQUID PO ×2 (09:03→13:49)
[2021-01-12] MEDS: Aspirin 81 MG TAB.CHEW PO (09:03)
[2021-01-12 09:04] VITALS: PULSE 61
[2021-01-12] MEDS: Metoprolol Tartrate 25 MG Tablet PO (09:04)
[2021-01-12] MEDS: Memantine Hydrochloride 10 MG Tablet PO (09:04)
[2021-01-12] MEDS: Cholecalciferol (VIT D3) 25 MCG TABLET (1,000 UNITS) PO (09:05)
[2021-01-12] MEDS: Famotidine 20 MG Tablet PO (09:05)
[2021-01-12] MEDS: Senna/Docusate Sodium 1 Tablet 2 TABLET PO (09:05)
[2021-01-12 10:01] VITALS: O2SAT 100
--- NOTE | 2021-01-12 10:15 | CASEMGMT ---
RN CM [employer] CM to room to meet with patient for initial transition planning/care coordination assessment. RN TRANG introduced self and role at [facility]. Pt voices understanding and consents to assessment at this time. Pt sitting up in chair in room in no distress at this time. , Estela, @ bedside. Pt is A/O, but is forgetful @ times. Pt provided some of the following info and some info also obtained from . Care providers, pharmacy, and demographics verified/updated at this time. PCP: Dr Omer Camacho Specialists: Dr Smith, Preferred Pharmacy: [facility] Retail pharmacy Insurance: [facility] Prescription Benefit: Yes LNOK: , Estela. SonAnuel Living Arrangements: Lives w/, Estela, in one-story home w/5 steps to enter. Independent w/ADL's. prior to surgery. able to help as needed. Transportation: Pt still drives short distances. provides most of the transportation. DME: [facility] has the following DME: shower chair, RTS, cane, grab bars. They have a walker, but it is too short. Pt needs a new walker. /provided with list of local DME providers consistent with the patient's preferred geographic region, medical needs, and insurance network. states they have no preference. Made aware [facility] is an affiliate of [facility] and located next to [facility] and she chose [facility]. Script obtained for FWW and faxed to [facility]. Call placed to Maria Elena @ [employer] and she was notified of need of delivery of walker to pt's room, as pt is being discharged home today. HHC/SNF: No history of either. Pt plans to go to [facility] for OP therapy. 1st appt scheduled for OP PT 01/13 @ 6230. Pt/ wish for pt to return home and states has no concerns with going home at time of discharge. CM to follow for any further discharge planning/needs. Pt/ voice no further concerns/needs at this time. Advised them to ask for CM if any further questions/concerns/needs arise. They voice understanding. PLAN: Home w/spousal support and discharge plans in place. Usama HUANG RN CM
--- NOTE | 2021-01-12 10:39 | PN.ORTHO_ITS ---
Subjective Subjective The patient was sitting in bedside chair upon examination with present. Patient denies any chest pain, shortness of breath, dizziness, lightheadedness, nausea or vomiting, or calf pain. Pain is controlled on medications. No adverse overnight events. Patient overall is doing very well today. Patient has only been using Tylenol for pain control. Physical therapy did assess patient and his walker is too short. Prescription for new walker was placed. Objective Data Objective Data Vital Signs: Vital Signs Temp Pulse Resp BP Pulse Ox 97.9 F 61 17 123/60 H 100 01/12/21 09:01 01/12/21 09:04 01/12/21 09:01 01/12/21 09:01 01/12/21 10:01 Oxygen Flow Rate (L/min) 6 Oxygen Delivery Method Room Air Weight: 69.5 kg Body Mass Index (BMI) 22.6 Intake & Output: Intake and Output for Last 24 Hours 01/10/21 01/11/21 01/12/21 23:59 23:59 23:59 Intake Total 3623.58 / 3623.58 50 / 50 Balance 3623.58 / 3623.58 50 / 50 Lab / Micro Data Result Diagrams: 01/12/21 06:04 01/12/21 06:04 Labs: Laboratory Results - last 24 hr 01/12/21 06:04: WBC 21.2 H, RBC 4.75, Hgb 14.5, Hct 43.5, MCV 91.6, MCH 30.5, MCHC 33.3, RDW Std Deviation 47.3 H, RDW Coeff of Alex 13.8, Plt Count 233, MPV 10.1 01/12/21 06:04: Sodium 141, Potassium 4.6, Chloride 108 H, Carbon Dioxide 26.0, Anion Gap 7, BUN 27 H, Creatinine 1.26, Estim Creat Clear Calc 49.80, Est GFR (MDRD) Af Amer 72, Est GFR (MDRD) Non-Af 59 L, BUN/Creatinine Ratio 21.4 H, Glucose 116 H, Calcium 8.6 Micro: Microbiology 12/29/20 09:42 Swab (Method) Nasal Screen MRSA/MSSA - Final Radiography Diagnostic Testing: Radiology Impression Hip/Pelvis X-Ray 01/11/21 10:35 Hip X-Ray 01/11/21 11:45 IMPRESSION: Uncomplicated right hip arthroplasty. Electronically Signed: Ambrosio Isbell MD at 12:40 EDT Tel , Service support , Physical Exam Narrative Vital signs stable and afebrile. Patient is able to plantarflex and dorsiflex actively. Sensation is intact to light touch to saphenous, sural, superficial and deep peroneal, and tibial distribution. Dressing is clean dry and intact. Negative Homans bilaterally, negative signs and symptoms of DVT. Const alert, oriented x3 and no apparent distress Assessment & Plan Assessment/Plan (1) Status post total hip replacement, right: PLAN: 1. S/P direct anterior right total hip arthroplasty POD #1 2. Continue Pain Medications: Patient has only been requiring Tylenol for pain control. He has meloxicam at home. Prescription for oxycodone will be printed and placed on chart and only filled as needed. 3. DVT Prophylaxis: Take 81 mg aspirin twice daily for 4 weeks postoperatively for DVT prophylaxis 4. PT/OT: Weightbearing as tolerated with walker. Prescription for new walker was placed. 5. H & H: 14.5/43.5, asymptomatic. 6. Reactive leukocytosis: Currently 21.2, afebrile. Patient did receive Decadron intraoperatively. I will place order in chart for patient to get repeat CBC and 1 week to reassess white blood cell count. I do feel this is secondary to the Decadron intraoperatively. No signs of infection. 7. Encouraged Incentive Spirometry 8. Continue postoperative medical management per medicine 9. Disposition: Plan will be for discharge home today after physical therapy session in the afternoon. Prescription of oxycodone will be placed on chart. Patient has all other medications at home including Tylenol, aspirin, meloxicam, and senna. He will follow-up per postop instructions. Patient has outpatient physical therapy established. I have reviewed the [place] Automated Rx Reporting System (OARRS) report for this patient for refill pattern and other prescriber involvement as part of the appropriate surveillance for the provision of acute and chronic controlled medications. The report was requested and reviewed on the date of this entry and was considered in the prescribing process.
--- NOTE | 2021-01-12 10:43 | PCM.DC ---
Discharge Instructions Diet Discharge Diet: No restrictions Activity Discharge Activity: May Not Drive (while taking narcotic pain medications.) May shower in (days): 1 (only if incision is dry and without drainage. Do NOT soak/submerge in tub/pool/cantor/stream/hot tub.)) Ice area for (Minutes): 20 (Every 1-2 hours while awake[address] barrier between ice and skin.) Weight Bearing Status: Weight bearing as tolerated Keep extremity elevated above heart level: Operative Extremity Dressing / Incision Call your doctor if your incision/area has: Continuous Slow Oozing, Sudden Increased Bleeding, Increased Pain/ Swelling, Increased Redness and Foul Smelling Discharge Call your doctor if you observe: Fever of 101 or Higher, Shortness of breath, Chest pain, Calf discomfort and Uncontrolled pain Remove Dressing in: 4 days (Okay to remove dressing on January 16, 2021) Additional Dressing/Incision Instructions:: Follow [facility] Post-op Instructions. Once postoperative dressing has been removed, only use gentle soap and water over the incision. Do not use any ointments, Neosporin, salves, alcohol pads over the incision for 6 weeks postoperatively. Do not submerge underwater for 6 weeks postoperatively. Continue with RO hose/elastic stockings for 2 weeks postoperatively. May remove at nighttime but needs to be placed back on the leg during the day. Do NOT use alcohol with narcotic pain medication. Do NOT make important decisions while taking narcotic medication. If you have problems with taking your medication (rash, itching, nausea, etc.) call the office at once. Follow Up Care Test Results: Test results from this visit will be discussed in further detail at your follow-up appointment, if applicable. Discharge Plan Admission Admit Date/Time: 01/11/21 14:17 Attending Provider: Roe Martinez Primary Care Provider: Omer Camacho Consulting Providers: Jessica Chacon Instructions Additional Instructions / Restrictions: Get repeat lab work on January 16, 2021 for CBC Discharge Orders/Prescriptions Prescriptions: New acetaminophen 500 mg Tablet 1,000 mg PO TID 14 Days Qty: 84 RF: 0 aspirin 81 mg Tablet,Chewable 81 mg PO BIDCM 30 Days Qty: 60 RF: 0 meloxicam 7.5 mg Tablet 7.5 mg PO BID Qty: 0 RF: 0 oxycodone 5 mg Tablet 2.5 mg PO Q4H PRN PRN (Reason: Pain Score 4-10) 7 Days Qty: 14 RF: 0 Continued metoprolol tartrate 50 mg tablet 25 mg PO BID RF: 0 naproxen sodium [Aleve] 220 mg capsule 440 mg PO DAILY RF: 0 tamsulosin 0.4 mg capsule 0.4 mg PO QHS Qty: 90 RF: 1 memantine 10 mg tablet 10 mg PO BID Qty: 90 RF: 1 levothyroxine 75 mcg tablet 75 mcg PO DAILY Qty: 90 RF: 3 cholecalciferol (vitamin D3) 1,000 UNIT tablet 1,000 unit PO DAILY RF: 0 Discontinued aspirin 81 mg tablet,delayed release (DR/EC) 81 mg PO DAILY RF: 0 Other Ambulatory Orders: CBC-Complete Blood Cnt No Diff (Routine) Timeframe: 5 Days Facility: [facility] - Location: Laboratory Ordered By: Raul STARK Referrals / Follow Up: Physical,Therapy [Other] - 01/13/21 9:30 am Omer Camacho DO [Primary Care Provider] - Raul Wright PA-C [PHYSICIAN ENVIRONMENTAL FIELD OFFICE MANAGER] - 01/26/21 2:00 pm Disposition Disposition (needs filled in before D/C Order can be placed): Home, Self Care
--- NOTE | 2021-01-12 11:14 | PCM.PN.HOSP ---
Documented by User: Rafi STARK 01/12/21 11:22 Subjective Subjective Patient is a 75-year-old male comfortably resting in bed, alert and oriented x3 status post anterior total hip replacement. Patient reports mild stiffness and pain after surgery, denies any other symptoms. Denies chest pain, shortness of breath, palpitations, hemoptysis, sputum production, fever, chills, N/V/D. Objective Data Objective Data Vital Signs: Vital Signs Temp Pulse Resp BP Pulse Ox 97.9 F 61 17 123/60 H 100 01/12/21 09:01 01/12/21 09:04 01/12/21 09:01 01/12/21 09:01 01/12/21 10:01 Oxygen Flow Rate (L/min) 6 Oxygen Delivery Method Room Air Weight: 153 lb 3.54 oz Body Mass Index (BMI) 22.6 Intake & Output: Intake and Output for Last 24 Hours 01/10/21 01/11/21 01/12/21 23:59 23:59 23:59 Intake Total 3623.58 / 3623.58 50 / 50 Balance 3623.58 / 3623.58 50 / 50 Lab / Micro Data Result Diagrams: 01/12/21 06:04 01/12/21 06:04 Labs: Laboratory Results - last 24 hr 01/12/21 06:04: WBC 21.2 H, RBC 4.75, Hgb 14.5, Hct 43.5, MCV 91.6, MCH 30.5, MCHC 33.3, RDW Std Deviation 47.3 H, RDW Coeff of Alex 13.8, Plt Count 233, MPV 10.1 01/12/21 06:04: Sodium 141, Potassium 4.6, Chloride 108 H, Carbon Dioxide 26.0, Anion Gap 7, BUN 27 H, Creatinine 1.26, Estim Creat Clear Calc 49.80, Est GFR (MDRD) Af Amer 72, Est GFR (MDRD) Non-Af 59 L, BUN/Creatinine Ratio 21.4 H, Glucose 116 H, Calcium 8.6 Micro: Microbiology 12/29/20 09:42 Swab (Method) Nasal Screen MRSA/MSSA - Final Radiography Diagnostic Testing: Radiology Impression Hip/Pelvis X-Ray 01/11/21 10:35 Hip X-Ray 01/11/21 11:45 IMPRESSION: Uncomplicated right hip arthroplasty. Electronically Signed: Ambrosio Isbell MD at 12:40 EDT Tel , Service support , Physical Exam Const alert, oriented x3 and no apparent distress HEENT head/scalp atraumatic Head and Scalp: normocephalic Eyes PERRL, EOMs intact bilaterally and conjunctivae normal Neck no lymphadenopathy, supple and no JVD Resp normal respiratory effort, no retractions, no use of accessory muscles and clear to auscultation bilaterally Cardio regular rate, regular rhythm, no murmurs and no JVD GI normal to inspection, nondistended, normoactive bowel sounds, soft to palpation and non-tender Extremity normal to inspection, full ROM and no clubbing, cyanosis or edema Skin no rashes or lesions noted, no wounds, skin turgor normal and no jaundice Neuro CN's II-XII intact bilaterally Psych affect normal Assessment & Plan Assessment/Plan (1) Status post total hip replacement, right: PLAN: Patient is a 75-year-old male who presents to the hospital medicine service on consult from the orthopedics department for right hip osteoarthritis status post right anterior total hip replacement. 1) Alzheimer's dementia Stable, continue memantine. 2) Hypothyroidism Continue Synthroid. 3) Hypertension Continue metoprolol. 4) BPH Continue Flomax. 5) R. hip Osteoarthritis Status post anterior total hip arthroplasty. Management per orthopedics. DVT prophylaxis - per orthopedics Patient seen by Rafi Pearl PA-C, under the supervision of Dr. Martinez. Documented by User: Dr. Roe Matrinez DO 01/12/21 13:02 Objective Data Lab / Micro Data Result Diagrams: 01/12/21 06:04 01/12/21 06:04 Charges/Coding Addendum Addendum: Patient seen and examined independently. Data and vitals reviewed. I agree with the above note by the physician orthopaedic physician assistant. Patient feels fine at this time. Anxious to go home. Exam: Patient no acute distress and afebrile. Heart rate regular rate and rhythm plus S1-S2 with any murmurs Or rubs. Lungs are clear to auscultation bilaterally. Assessment and plan 1. Leukocytosis: Likely stress response. Discussed with Raul Arrington, plan to follow-up as outpatient 2. Status post right hip replacement: Management per orthopedics. Medically stable for discharge. Will sign off. Please contact if any additional medical issues arise. Visit Charges Inpatient E&M: 09421 Subs Hosp L2
[2021-01-12 14:00] VITALS: BP 133/68; PULSE 56; RESP 18; TEMP 36.5; O2SAT 100
== END 2021-01-12 14:30 | disposition home or self-care (01) ==
LOC: SDC 14:18 → MS2 14:18
PROVIDERS: Anesthesiology; Admitting Provider Specialist; PCP Family Medicine; Referring Provider Specialist
PROC: (CPT 27284; principal; 2021-01-11 09:35)
DX: M16.11 Unilateral primary osteoarthritis, right hip (principal); G30.9 Alzheimer's disease, unspecified; F02.80 Dementia in other diseases classified elsewhere, unspecified severity, without behavioral disturbance, psychotic disturbance, mood disturbance, and anxiety; E03.9 Hypothyroidism, unspecified; N40.0 Benign prostatic hyperplasia without lower urinary tract symptoms; G25.81 Restless legs syndrome; I44.0 Atrioventricular block, first degree; I10 Essential (primary) hypertension; Z79.899 Other long term (current) drug therapy; Z79.82 Long term (current) use of aspirin; Z79.890 Hormone replacement therapy
CPT/HCPCS: 01214; 27130; 36415; 71046; 73501; 73502; 76000; 80048; 82962; 83735; 84443; 85025; 85027; 87081; 93005; 96365; 96366; 97110; 97116; 97162; 97166; 97530; 99218; 99251; C1776; J7120; A4216; G0378; G0463; J2405

== ENCOUNTER → 2021-01-16 13:16 | Outpatient (CLI) | payer MEDICARE, SELFPAY ==
[2021-01-16 15:17] LABS: Hematocrit 41.4 % (40-54); Hemoglobin 13.4 g/dL (13.0-16.5); Mean Corp Hgb Conc 32.4 g/dL (32-36); Mean Corpuscular Hgb 29.8 pg (27.0-32.0); Mean Platelet Vol. 10.7 fl (6.2-12.0); Platelet Count 243 K/mm3 (150-450); RBC Distribution Width CV 13.9 % (11.6-14.6); RBC Distribution Width SD 47.3 fl (35.1-43.9)
== END ==
PROVIDERS: PCP Family Medicine; Referring Provider Physician Assistant Surgical; Visit Provider Physician Assistant Surgical
DX: D72.829 Elevated white blood cell count, unspecified (principal); Z96.641 Presence of right artificial hip joint
CPT/HCPCS: 36415; 85027

== ENCOUNTER → 2021-08-16 | Outpatient (CLI) | payer MEDICARE, SELFPAY ==
--- NOTE | 2021-08-16 16:16 | RAD_ITS ---
STUDY: X-RAY LEFT FOOT, TOE REASON FOR EXAM: Male, 76 years old. trauma to the toe left middle toe TECHNIQUE: 4 view(s) of the toe were obtained. COMPARISON: None. FINDINGS: Normal visualized metatarsus. Normal metatarsophalangeal (M.T.P) joint. Normal interphalangeal joints. There is a fracture of the distal phalanx of the third toe. The soft tissue structures are unremarkable. RAD/Toe(s) Min 2 Views IMPRESSION: Fracture of the distal phalanx of the third toe Electronically Signed: Kush Kuo MD at 2:39 EDT ,
== END | disposition home or self-care (01) ==
PROVIDERS: PCP Family Medicine; Referring Provider Family Medicine; Visit Provider Family Medicine
DX: S99.922A Unspecified injury of left foot, initial encounter (principal)
CPT/HCPCS: 73660

== ENCOUNTER → 2021-12-21 | Outpatient (CLI) | payer MEDICARE, SELFPAY ==
[2021-12-21 12:41] LABS: Anion Gap 6 (5-15); BUN 26 mg/dL (7-18); BUN/Creat Ratio 18.2 RATIO (10-20); Calcium,Total 9.1 mg/dL (8.5-10.1); Chloride 108 mmol/L (98-107); Cholesterol 213 mg/dL (200); Creatinine, Serum 1.43 mg/dL (0.70-1.30); EST Glomerular Filtration Rate 51 mL/min (>60); Est Glom Filt Rate - Afr Amer 62 mL/min (>60); Glucose 93 mg/dL (74-106); High Density Lipoprotein 41 mg/dL; Potassium 4.8 mmol/L (3.5-5.1); Sodium Level 142 mmol/L (136-145); Thyroid Stim Hormone (TSH) 1.63 uIU/mL (0.358-3.74); Triglycerides 154 mg/dL; Very Low Density Lipoprotein 31 mg/dL (5-40)
== END | disposition home or self-care (01) ==
LOC: BIMLAB 09:42
PROVIDERS: PCP Family Medicine; Referring Provider Family Medicine; Visit Provider Family Medicine
DX: E03.9 Hypothyroidism, unspecified (principal)
CPT/HCPCS: 36415; 80048; 80061; 84443

== ENCOUNTER → 2022-06-19 | Outpatient (CLI) | payer MEDICARE, SELFPAY ==
[2022-06-19 13:11] LABS: BUN 27 mg/dL (7-18); BUN/Creat Ratio 20.8 RATIO (10-20); Calcium,Total 9.2 mg/dL (8.5-10.1); Chloride 107 mmol/L (98-107); EST Glomerular Filtration Rate 57 mL/min (>60); Est Glom Filt Rate - Afr Amer 69 mL/min (>60); Glucose 86 mg/dL (74-106); Phosphorus 2.8 mg/dL (2.5-4.9); Potassium 4.8 mmol/L (3.5-5.1); Sodium Level 141 mmol/L (136-145); Uric Acid 6.8 mg/dL (3.5-7.2)
== END | disposition home or self-care (01) ==
PROVIDERS: PCP Family Medicine; Referring Provider Family Medicine; Visit Provider Family Medicine
DX: M10.9 Gout, unspecified (principal)
CPT/HCPCS: 36415; 80069; 84550

== ENCOUNTER → 2022-12-19 | Outpatient (CLI) | payer MEDICARE, SELFPAY ==
[2022-12-19 12:49] LABS: Thyroid Stim Hormone (TSH) 1.61 uIU/mL (0.358-3.74)
== END | disposition home or self-care (01) ==
LOC: BIMLAB 10:07
PROVIDERS: PCP Family Medicine; Visit Provider Family Medicine
DX: E03.9 Hypothyroidism, unspecified (principal)
CPT/HCPCS: 36415; 84443

== ENCOUNTER → 2023-06-26 | Outpatient (CLI) | payer MEDICARE, SELFPAY ==
[2023-06-26 12:22] LABS: Absolute Lymphocyte Count 1.48 X10^3/uL (0.83-4.51); Absolute Neutrophil Count 4.3 X10^3/uL (2.0-7.7); Basophil# 0.03 X10^3/uL; Basophil% 0.4 % (0-1); Eosinophil# 0.12 X10^3/uL; Eosinophils% 1.8 % (0-5); Hematocrit 46.7 % (40-54); Hemoglobin 14.7 g/dL (13.0-16.5); Lymphocyte # 1.48 X10^3/ul (0.83-4.51); Lymphocyte % 21.9 % (19-41); Mean Corp Hgb Conc 31.5 g/dL (32-36); Mean Corpuscular Hgb 29.6 pg (27.0-32.0); Mean Platelet Vol. 11.2 fl (6.2-12.0); Monocyte# 0.77 X10^3/uL; Monocyte% 11.4 % (0-10); NRBC Flagged by Analyzer 0 % (0-5); Neutrophil # 4.34 X10^3/uL (2.7-7.7); Neutrophil % 64.1 % (47-70); Platelet Count 198 K/mm3 (150-450); RBC Distribution Width CV 14.1 % (11.6-14.6); RBC Distribution Width SD 48.6 fl (35.1-43.9); Red Blood Count 4.97 M/mm3 (4.6-6.2); White Blood Count 6.8 K/mm3 (4.4-11.0)
[2023-06-26 13:00] LABS: ALB/GLOB Ratio 1.3 RATIO (0.9-2.4); AST(SGOT) 26 U/L (15-37); Alanine Aminotransfer ALT/SGPT 28 U/L (16-61); Alkaline Phosphatase 67 U/L (45-117); Anion Gap 8 (5-15); BUN 33 mg/dL (7-18); BUN/Creat Ratio 24.4 RATIO (10-20); Calcium,Total 9.2 mg/dL (8.5-10.1); Chloride 107 mmol/L (98-107); Creatinine, Serum 1.35 mg/dL (0.70-1.30); EST Glomerular Filtration Rate 54 mL/min (>60); Est Glom Filt Rate - Afr Amer 66 mL/min (>60); Globulin 3.1 g/dL (2.2-4.2); Glucose 104 mg/dL (74-106); PSA,Total - Annual Screen 1.47 ng/mL (0.00-4.00); Potassium 5.6 mmol/L (3.5-5.1); Protein, Total 7.1 g/dL (6.4-8.2); Sodium Level 140 mmol/L (136-145); Thyroid Stim Hormone (TSH) 1.51 uIU/mL (0.358-3.74)
--- OUTSIDE RECORDS SUMMARY | 2023-06-26 14:45 | XMS RPT_ITS | CCD ---
Author Name Unknown Address [address] [place] [address] Organization [facility] Care Team Providers Care Manager Contract Name Role Phone FERMIN OSORIO JR. Attending Unavailable RORY CAMACHO Primary Care Unavailable FERMIN OSORIO JR. Attending Unavailable BROWN, RORY Primary Care Unavailable HEIDI DEL CASTILLO Attending Unavailable BROWN, RORY Primary Care Unavailable HEIDI DEL CASTILLO Attending Unavailable BROWNIMANIRORY Primary Care Unavailable Rory Camacho Primary Care Provider Results Test Name Value Interpretation Reference Range Facil ity Encounters Encounter Date Encounter Type Care Provider Facility Start: 07-29-2020 End: 07-29-2020 Patient encounter procedure Jovany Flores Work Phone: [facility] Start: 07-29-2020 Results Only Jovany davison Work Phone: General Surgery Start: 06-26-2018 Patient encounter procedure HEIDI DEL CASTILLO Facility:B Start: 06-26-2018 End: 06-27-2018 Patient encounter procedure HEIDI DEL CASTILLO Facility:[facility] Start: 08-19-2017 End: 08-20-2017 Patient encounter procedure FERMIN OSORIO Facility:[facility] Start: 08-02-2017 End: 08-03-2017 Patient encounter procedure FERMIN OSORIO Facility:[facility] Procedures Date Procedure Procedure Detail Performing Clinician Start: 07-29-2020 PT ED PATIENT INFORMATION Jovany Flores Work Phone: Plan of Treatment Date Care Activity Detail Author PT ED PATIENT INFORMATION PT ED PATIENT INFORMATION Other 07/29/2020 [facility] Payers Date Payer Category [facility]ayer [facility] [id number] 2020-Present HMO [id number] 2017 Medicaid [id number] 2017 Medicare [id number] 1945 Unknown [id number] 1945 Unknown [id number] 1945 Unknown [id number] 1945 Unknown [id number] Social History Date Type Detail Facility Tobacco smoking status NHIS Unknown if ev er smoked [facility] Start: 1945 Sex Assigned At Not on file [facility] Exposure to SARS-CoV -2 (event) Not sure [facility] Progress note 08-17-2020 Note Date & Type Note Facility 08-17-2020 Note HNO ID: [id number] Author: Jovany Flores MD Service: ? Author Type: Physician Type: Progress Notes Filed: 08/17/2020 6:14 AM Note Text: HISTORY AND PHYSICAL Anoop Rockwell 1945 REFERRING PHYSICIAN: Rory Camacho DO CHIEF COMPLAINT: Consult (Consult hernia) HPI: The patient is a 75 year old male with a complaint of a sausage shaped bulge that extends from his xiphoid to his umbilical area. He notes this area when he raises up his legs or attempts to sit up from lying down. He notes no pain in the area. He notes no obstructive symptoms. He notes no history of ventral incisions. The patient is being seen by me today at the request of Dr. Rory Camacho DO for my opinion and advice regarding ventral midline bulging. PAST MEDICAL HISTORY Diagnosis Date - Arthritis - BPH (benign prostatic hyperplasia) - Hypothyroid - Memory impairment - MVP (mitral valve prolapse) PAST SURGICAL HISTORY Procedure Laterality Date - CATARACT EXTRACTION HX - COLONOSCOPY - EYELID CANTHOPLASTY MEDIAL Bilateral 2019 - HEART CATHETERIZATION - INGUINAL HERNIA REPAIR HX Left 1990 - TOTAL HIP REPLACEMENT Left 02/2020 - TOTAL KNEE REPLACEMENT Current Outpatient Medications Medication Sig - aspirin 81 mg chewable tablet Take 81 mg by mouth once daily. - Vitamin D3-Menaquinone 7 1000-90 unit-mcg ODT Take by mouth. - levothyroxine (SYNTHROID) 75 mcg tablet Take 75 mcg by mouth once daily. - tamsulosin (FLOMAX) 0.4 mg - metoprolol tartrate, short acting, (LOPRESSOR) 50 mg tablet Take 50 mg by mouth twice daily. - memantine (NAMENDA) 10 mg tablet No current facility-administered medications for this visit. ALLERGIES: Donepezil and Tramadol PERSONAL HISTORY: Social History Tobacco Use - Smoking status: Never Smoker - Smokeless tobacco: Never Used Substance Use Topics - Alcohol use: Not on file - Drug use: Not on file FAMILY HISTORY: History reviewed. No pertinent family history. REVIEW OF SYMPTOMS: The review of systems data was entered by the nurse and reviewed by id Nursing Notes: Gualberto Armenta LPN 08/16/2020 3:38 PM Signed REVIEW OF SYSTEMS: General: The patient denies fatigue, denies weight loss, denies weight gain, denies feeling hot, and denies feelings of cold. Eyes: The patient denies glaucoma, NOTES eye injury/surgery, wears glasses or contacts. Ear/Nose/Throat: The patient denies allergies, denies hayfever, denies ear infections, and denies bloody noses. Cardiovascular: The patient denies chest pain, denies heart disease, NOTES high blood pressure,denies cardiac stent, denies prior heart attack, denies irregular heart beat, denies high cholesterol, denies poor circulation, denies heart failure, NOTESother cardiac issues, denies claudication, denies cold feet, denies peripheral arterial stent. Respiratory: The patient denies tuberculosis, denies pneumonia, denies frequent cough, denies pulmonary embolism, denies shortness of breath, and denies coughing up blood. Gastrointestinal: The patient denies difficulty swallowing, denies acid reflux, denies ulcers, denies vomiting, denies jaundice/hepatitis, denies gallbladder problems, denies black or tarry stools, denies hemorrhoids, denies bleeding from rectum, denies diverticulitis, denies constipation, denies diarrhea, denies loss of stool control, and denies hernias. Kidney/Bladder: The patient denies kidney stones, denies urine infections, and denies bloody urine. Skin: The patient denies a history of skin cancer, denies bleeding/changing moles, and denies a history of skin rash. Neurologic: The patient denies a history of epilepsy/convulsions, denies headaches, denies head/spinal injuries, and denies stroke/TIA. Psychiatric: The patient denies psychiatric medications, denies depression, and denies voices, denies substance abuse. Endocrine: The patient NOTES thyroid disorders, denies diabetes, and denies hormonal problems. Hematologic: The patient denies a history of bruising, denies bleeding, and denies anemia, denies blood clots. Infections: The patient denies a history of measles and mumps, denies rheumatic fever, and denies sexually transmitted diseases. Musculoskeletal: The patient denies back pain/injury, denies back problems, denies sciatica, denies knee/foot trouble, denies arthritis, or denies gout. When was patient's last Mammogram screening? N/A Last Colonoscopy: Unknown Gualberto Armenta [facility] PHYSICAL EXAMINATION: General: The patient is 75 year old male, well nourished, well hydrated in no acute distress. The patient is oriented to time, place, and person. VITALS: Pulse 76, temperature 36.8 ?C (98.3 ?F), height 175.3 cm (5' 9 ), weight 71.5 kg (157 lb 9.6 oz), SpO2 97 %. HEENT: Normal cephalic, ataumatic, pupils are equally round, sclera are anicteric, mucous membranes are moist, oropharynx is clear. Neck has no masses, asymmetry or lymphadenopathy. Thyroid is un (more content not included)... [facility] Summary Purpose Family History No Family History Records FoundNo Family History Records Found Advance Directives No Advanced Directives Records FoundNo Advanced Directives Records Found Additional Source Comments (unrecognized sect ion and content) No Status Records FoundNo Status Records Found INFORMATION SOURCE (unrecogn ized section and content) DATE CREATED AUTHOR AUTHOR'S ORGANIZ ATION 05/15/2021 [facility] Source Comments (unrecognize d section and content) In the event this informatio n is protected by the Federal Confidentiality of Alcohol and Drug Abuse Patient Records regulations: The Federal rules restrict any use of the information to criminally investigate or prosecute any alcohol or drug abuse patient.[facility] FOR RECORDS PERTAINING TO PATIENTS WHO ARE OR HAVE BEEN ENROLLED IN A CHEMICAL DEPENDENCY/SUBSTANCEABUSE PROGRAM, SOME INFORMATION MAY BE OMITTED. This clinical summary was aggregated from multiple sources. Caution should be exercised in using it in the provision of clinical care. This summary normalizes information from multiple sources, and as a consequence, information in this document may materially change the coding, format and clinical context of patient data. In addition, data may be omitted in some cases. CLINICAL DECISIONS SHOULD BE BASED ON THE PRIMARY CLINICAL RECORDS. [employer] [facility] provides no warranty or guarantee of the accuracy or completeness of information in this document.
== END | disposition home or self-care (01) ==
LOC: BIMLAB 10:37
PROVIDERS: PCP Family Medicine; Visit Provider Family Medicine
DX: N40.0 Benign prostatic hyperplasia without lower urinary tract symptoms (principal); E03.9 Hypothyroidism, unspecified; Z12.5 Encounter for screening for malignant neoplasm of prostate
CPT/HCPCS: 36415; 80053; 84153; 84443; 85025; G0103

== ENCOUNTER → 2023-12-31 | Outpatient (CLI) | payer MEDICARE, SELFPAY ==
[2023-12-31 12:27] LABS: Anion Gap 7 (5-15); BUN 28 mg/dL (7-18); BUN/Creat Ratio 19.7 RATIO (10-20); Calcium,Total 9.1 mg/dL (8.5-10.1); Chloride 108 mmol/L (98-107); Creatinine, Serum 1.42 mg/dL (0.70-1.30); EST Glomerular Filtration Rate 51 mL/min (>60); Est Glom Filt Rate - Afr Amer 62 mL/min (>60); Glucose 101 mg/dL (74-106); Potassium 5.1 mmol/L (3.5-5.1); Sodium Level 140 mmol/L (136-145)
== END | disposition home or self-care (01) ==
LOC: BIMLAB 09:32
PROVIDERS: PCP Family Medicine; Visit Provider Family Medicine
DX: N40.0 Benign prostatic hyperplasia without lower urinary tract symptoms (principal)
CPT/HCPCS: 36415; 80048

== ENCOUNTER → 2024-06-30 | Outpatient (CLI) | payer MEDICARE, SELFPAY ==
[2024-06-30 12:25] LABS: Hematocrit 41.3 % (40-54); Hemoglobin 13.3 g/dL (13.0-16.5); Mean Corp Hgb Conc 32.2 g/dL (32-36); Mean Corpuscular Hgb 30.2 pg (27.0-32.0); Mean Corpuscular Volume 93.7 fL (80-94); Mean Platelet Vol. 12.2 fl (6.2-12.0); Platelet Count 186 K/mm3 (150-450); RBC Distribution Width CV 14.2 % (11.6-14.6); Red Blood Count 4.41 M/mm3 (4.6-6.2); White Blood Count 6.3 K/mm3 (4.4-11.0)
[2024-06-30 12:50] LABS: PSA,Total - Annual Screen 1.74 ng/mL (0.02-4.00)
== END | disposition home or self-care (01) ==
LOC: BIMLAB 09:09
PROVIDERS: PCP Family Medicine; Referring Provider Family Medicine; Visit Provider Family Medicine
DX: R41.3 Other amnesia (principal); E03.9 Hypothyroidism, unspecified; N40.0 Benign prostatic hyperplasia without lower urinary tract symptoms
CPT/HCPCS: 36415; 84153; 84443; 85027; G0103

== ENCOUNTER → 2024-10-01 | Outpatient (CLI) | payer MEDICARE, SELFPAY ==
--- OUTSIDE RECORDS SUMMARY | 2024-10-01 06:39 | XMS RPT_ITS | CCD ---
Author Organization [facility] CliniSyvt Care Team Providers Care Farrowing Worker Name Role Phone FERMIN OSORIO JR. Attending Unavailable RORY CAMACHO Primary Care Unavailable FERMIN OSORIO JR. Attending Unavailable RORY CAMACHO Primary Care Unavailable HEIDI CANNON Attending Unavailable RORY CAMACHO Primary Care Unavailable HEIDI CANNON Attending Unavailable RORY CAMACHO Primary Care Unavailable Rory Camacho Primary Care Provider Dr. Rory Camacho Primary Care Provider [phone] Dr. Royr Camacho Referring Provider Debby MATERIAL REPROCESSING ASSOCIATE, MATERIAL REPROCESSING ASSOCIATE-C Abimael Attending Provider Dr. Rory Camacho Attending Provider Dr. Rory Camacho Primary Care Provider [phone] Dr. Rory Camacho Attending Provider Dr. Rory Camacho Referring Provider Dr. Rory Camacho Primary Care Provider Dr. Rory Camacho Attending Provider Dr. Rory Camacho Referring Provider Dr. Rory Camacho Primary Care Provider Dr. Rory Camacho Attending Provider Dr. Rory Camacho Referring Provider Dr. Rory Camacho DO Primary Care Provider [phone] Dr. Rory Camacho DO Attending Provider [phone] Dr. Rory Camacho DO Referring Provider [phone] Brown, Rory R Attending Unavailable Brown, Rory R Primary Care Unavailable Brown, Rory R Attending Unavailable Brown, Rory R Referring Unavailable Brown, Rory R Primary Care Unavailable Fish MATERIAL REPROCESSING ASSOCIATEHeidi Attending Unavailable Fish MATERIAL REPROCESSING ASSOCIATEHeidi Referring Unavailable Brown, Rory R Primary Care Unavailable Brown, Rory R Attending Unavailable Brown, Rory R Referring Unavailable Brown, Rory R Primary Care Unavailable Brown, Rory R Attending Unavailable Brown, Rory R Referring Unavailable Brown, Rory R Primary Care Unavailable Allergies Allergy Classification Reported Allergen(s) Allergy Type Date of Onset Reaction(s) Facility (5 sources) donepezil Drug Allergy [address] [facility] (5 sources) traMADol Drug Allergy 2 NEEDS FOLLOW-UP [facility] (1 source) donepezil Drug Allergy [address] [facility] Rep[facility] (1 source) traMADol Drug Allergy [address] [facility] Medications Current Medications Medication Drug Class(es) Dates Sig (Normalized) Sig (Original) ascorbic acid 250 mg oral tablet (5 sources) Vitamin C Start: 06-30-2024 take 4 tablets by mouth once daily Ascorbic Acid (Vitamin C) 250 mg tablet Active 1000 mg PO DAILY June 30, 2024 8:32am Start: 12-21-2021 End: 06-30-2024 take 1 tablet by mouth once daily Ascorbic Acid (Vitamin C) 250 mg tablet Discontinued 250 mg PO DAILY December 21, 2021 12:00am June 30, 2024 8:32am aspirin 81 mg chewable tablet (10 sources) Platelet Aggregation Inhibitor, Nonsteroidal Anti-inflammatory Drug Start: 01-12-2021 take 1 tablet by mouth twice daily at mealtime Aspirin 81 mg Tablet,Chewable Active 81 mg PO TWICE DAILY WITH MEALS 60 January 12, 2021 12:00am Take 81 mg aspirin twice daily for 4 weeks postoperatively for DVT prophylaxis Start: 12-05-2017 End: 01-12-2021 take 1 tablet by mouth once daily Aspirin 81 mg tablet,delayed release (DR/EC) Discontinued 81 mg PO DAILY December 05, 2017 12:00am January 12, 2021 10:47am cholecalciferol 0.025 mg oral tablet (5 sources) Vitamin D Start: 02-23-2020 take 1 tablet by mouth once daily Cholecalciferol (Vitamin D3) 1,000 UNIT tablet Active 1000 U PO DAILY February 23, 2020 1:00am levothyroxine sodium 0.075 mg oral tablet (20 sources) l-Thyroxine Start: 12-17-2017 End: 06-30-2024 take 1 tablet by mouth once daily Levothyroxine 75 mcg tablet Active 75 ug PO DAILY June 30, 2024 8:51am Start: 12-05-2017 End: 12-17-2017 take 1 capsule by mouth once daily Levothyroxine 75 mcg capsule Discontinued 75 ug PO DAILY December 13, 2017 8:08am December 17, 2017 1:29pm Start: 12-05-2017 End: 12-05-2017 take 1 capsule by mouth once daily Levothyroxine 50 mcg capsule Discontinued 50 ug PO DAILY December 05, 2017 12:00am December 05, 2017 1:38pm memantine hydrochloride 10 mg oral tablet (20 sources) P-iljulb-Z-aspartate Receptor Antagonist Start: 09-06-2017 End: 06-30-2024 take 1 tablet by mouth twice daily Memantine 10 mg tablet Active 10 mg PO TWICE A DAY June 30, 2024 8:51am Start: 09-03-2017 End: 09-06-2017 take 1 tablet by mouth once daily in the morning Memantine 10 mg tablet Discontinued 10 mg PO EVERY MORNING September 03, 2017 12:00am September 06, 2017 1:05pm metoprolol tartrate 50 mg oral tablet (16 sources) beta-Adrenergic Lexie Start: 06-19-2022 End: 06-26-2023 Metoprolol Tartrate 50 mg tablet Active 25 mg PO DAILY June 26, 2023 10:10am Start: 06-19-2022 End: 06-26-2023 take 25 mg by mouth once daily Metoprolol Tartrate Act devin 25 MG PO DAILY June 26, 2023 10:10am Start: 08-08-2018 End: 06-19-2022 Metoprolol Tartrate 50 mg ta blet Discontinued 25 mg PO TWICE A DAY August 08, 2018 3:06pm June 19, 2022 10:08am Start: 08-08-2018 End: 06-19-2022 take 25 mg by mouth twice daily Metoprolol Tartrate Di scontinued 25 MG PO TWICE A DAY August 08, 2018 3:06pm June 19, 2022 10:08am Start: 10-09-2017 End: 08-08-2018 take 1 tablet by mouth twice daily Metoprolol Tartrate 50 mg tablet Discontinued 50 mg PO TWICE A DAY October 09, 2017 12:00am August 08, 2018 3:07pm naproxen sodium 220 mg oral capsule (17 sources) Nonsteroidal Anti-inflammatory Drug Start: 12-19-2022 take 1 capsule by mouth once daily Naproxen Sodium (Aleve) 220 mg capsule Active 220 mg PO DAILY December 19, 2022 9:32am Start: 12-21-2021 End: 12-19-2022 take 1 capsule by mouth twice daily as needed Naproxen Sodium (Aleve) 220 mg capsule Discontinued 220 mg PO TWICE A DAY as needed December 21, 2021 12:00am December 19, 2022 9:32am Start: 07-25-2020 End: 02-01-2021 take 2 capsules by mouth once daily Naproxen Sodium (Aleve) 220 mg capsule Discontinued 440 mg PO DAILY July 25, 2020 12:00am February 01, 2021 11:04am Start: 12-05-2017 End: 01-12-2020 take 1 tablet by mouth twice daily as needed for pain Naproxen Sodium (Aleve) 220 mg tablet Discontinued 220 mg PO TWICE A DAY as needed for Pain December 05, 2017 12:00am January 12, 2020 1:12pm zinc acetate 25 mg oral caps ule (8 sources) Start: 06-19-2022 Zinc Acetate ( Galzin) 25 mg (zinc) capsule Active 50 mg PO DAILY June 19, 2022 10:06am Start: 12-21-2021 End: 06-19-2022 take 1 capsule by mouth once daily Zinc Acetate (Galzin) 25 mg (zinc) capsule Discontinued 25 mg PO DAILY December 21, 2021 12:00am June 19, 2022 10:08am Completed/Discontinued Medications Medication Drug Class(es) Dates Sig (Normalized) Sig (Original) acetaminophen 500 mg oral tablet (5 sources) Start: 01-12-2021 End: 12-21-2021 Acetaminophen 500 mg Tablet Discontinued 1000 mg PO THREE TIMES A DAY 84 14 January 12, 2021 12:00am December 21, 2021 9:01am Do not take more than 3000 mg Tylenol in a 24-hour period. Start: 01-12-2021 End: 12-21-2021 take 3000 mg by mouth three times daily Acetaminophen Discontinued 1000 MG PO THREE TIMES A DAY 84 14 January 12, 2021 12:00am December 21, 2021 9:01am Do not take more than 3000 mg Tylenol in a 24-hour period. colchicine 0.6 mg oral tablet (4 sources) Start: 06-19-2022 End: 12-19-2022 take 1 tablet by mouth twice daily Colchicine 0.6 mg tablet Discontinued 0.6 mg PO TWICE A DAY June 19, 2022 1:00am December 19, 2022 9:32am Fluad Quad (65yr up)(PF) 60 mcg (15 mcg x 4)/0.5mL IM syringe (flu vac (1 source) Start: 02-01-2021 End: 02-01-2021 Fluad Quad (65yr up)(PF) 60 mcg (15 mcg x 4)/0.5mL IM syringe (flu vac Discontinued 60 MCG IM ONCE 0.5 February 01, 2021 11:03am February 01, 2021 11:49am meloxicam 7.5 mg oral tablet (10 sources) Nonsteroidal Anti-inflammatory Drug Start: 01-12-2021 End: 06-30-2021 take 1 tablet by mouth twice daily Meloxicam 7.5 mg Tablet Discontinued 7.5 mg PO TWICE A DAY 0 January 12, 2021 12:00am June 30, 2021 10:54am Do not take any other nonsteroidal anti-inflammatories while using meloxicam/Mobic. Start: 01-12-2020 End: 07-25-2020 take 1 tablet by mouth once daily Meloxicam 15 mg tablet Discontinued 15 mg PO DAILY January 12, 2020 12:00am July 25, 2020 9:52am oxyCODONE hydrochloride 5 mg oral tablet (5 sources) Opioid Agonist Start: 01-12-2021 End: 02-01-2021 take 2.5 mg by mouth every four hours as needed for pain Oxycodone 5 mg Tablet Discontinued 2.5 mg PO EVERY 4 HOURS NEEDED as needed for Pain Score 4-10 14 7 January 12, 2021 February 01, 2021 11:04am Start: 01-12-2021 End: 02-01-2021 take 2.5 mg by mouth every four hours as needed Oxycodone Discontinued 2.5 MG PO EVERY 4 HOURS NEEDED 14 7 January 12, 2021 February 01, 2021 11:04am tamsulosin hydrochloride 0.4 mg oral capsule (20 sources) alpha-Adrenergic Lexie Start: 10-09-2017 End: 06-30-2024 take 1 capsule by mouth once daily at bedtime Tamsulosin 0.4 mg capsule Discontinued 0 .ROUTE .COMPLEX 100 December 19, 2022 8:12am December 19, 2022 9:49am TAKE 1 CAPSULE BY MOUTH ONCE DAILY AT BEDTIME FOR PROSTATE Problems Active Problems Problem Classification Problem Date Documented Date Episodic/Chronic Cardiac dysrhythmias (1 source) Bradycardia, unspecified; Translations: [Bradycardia, unspecified] Onset: 09-25-2024 Episodic Coronary atherosclerosis and other heart disease (1 source) Atherosclerotic heart disease of [place] coronary artery without angina pectoris; Translations: [Atherosclerotic heart disease of [place] coronary artery without angina pectoris] Onset: 09-25-2024 Chronic Essential hypertension (1 source) Essential (primary) hypertension; Translations: [Essential (primary) hypertension] Onset: 09-25-2024 Chronic Gout and other crystal arthropathies (5 sources) Gout; Translations: [Gout, unspecified] 06-19-2022 Chronic Heart valve disorders (7 sources) Mitral valve prolapse; Translations: [Nonrheumatic mitral (valve) prolapse] Onset: 09-25-2024 12-05-2017 Chronic Hyperplasia of prostate (10 sources) Benign prostatic hyperplasia; Translations: [Benign prostatic hyperplasia without lower urinary tract symptoms] Onset: 06-30-2024 Chronic Osteoarthritis (10 sources) Osteoarthritis of right hip joint; Translations: [Unilateral primary osteoarthritis, right hip] 01-04-2021 Chronic Other connective tissue disease (5 sources) History of total hip arthroplasty; Translations: [Presence of right artificial hip joint] 01-12-2021 Chronic Other injuries and conditions due to external causes (5 sources) Injury of toe; Translations: [Unspecified injury of unspecified foot, initial encounter] 08-16-2021 Episodic Other injuries and conditions due to external causes (1 source) Unspecified injury of unspecified foot, initial encounter; Translations: [Knee, leg, ankle, and foot injury] Episodic Other lower respiratory disease (1 source) Shortness of breath; Translations: [Shortness of breath] Onset: 09-25-2024 Episodic Other skin disorders (5 sources) Inflamed seborrheic keratosis; Translations: [Inflamed seborrheic keratosis] 03-17-2019 Episodic Comment on above: I did a shave excisi on of a 6 mm lesion on the scalp. It was saucerized with a #15 blade and hemostasis was done with electrocautery. There was a small secondary keratosis that was removed with electrocautery. Residual codes; unclassified (6 sources) Memory impairment; Translations: [Other amnesia] 06-19-2022 Episodic Comment on above: Continue on memantin e Residual codes; unclassified (4 sources) Other amnesia; Translations: [Memory loss] Onset: 07-08-2024 Episodic Thyroid disorders (10 sources) Hypothyroidism; Translations: [Hypothyroidism, unspecified] Onset: 06-30-2024 Chronic Past or Other Problems Problem Classification Problem Date Documented Da te Episodic/Chronic Unclassified (4 sources) history eyelid surgery 11-02-2021 Comment on above: 07/01 Results Test Name Value Interpretation Reference Range Facility CBC-Complete Blood Cnt No Di ffon 06-30-2024 Erythrocyte distribution width (RBC) [Ratio] 14.2 % Normal 11.6-14.[address] [facility] Comment on above: Performed By: #### L [id number], L501.9910, L100.0500 #### [facility] [address] [place], [address] Hematocrit (Bld) [Volume fraction] 41.3 % Normal 40-[address] [facility] Comment on above: Performed By: #### L [id number], L501.9910, L100.0500 #### [facility] [address] [place], [address] Hemoglobin (Bld) [Mass/Vol] 13.3 g/dL Normal 13.0-16.[address] [facility] Comment on above: Performed By: #### L [id number], L501.9910, L100.0500 #### [facility] [address] [place], [address] MCH (RBC) [Entitic mass] 30.2 pg Normal 27.0-32.[address] [facility] Comment on above: Performed By: #### L [id number], L501.9910, L100.0500 #### [facility] [address] [place], [address] MCHC (RBC) [Mass/Vol] 32.2 g/dL Normal 32-36 [facility] Comment on above: Performed By: #### L [id number], L501.9910, L100.0500 #### [facility] [address] [place], [address] MCV (RBC) [Entitic vol] 93.7 fL Normal 80-94 [facility] Comment on above: Performed By: #### L [id number], L501.9910, L100.0500 #### [facility] [address] [place], [address] Platelet mean volume (Bld) [Entitic vol] 12.2 fL High 6.2-12.[address] [facility] Comment on above: Performed By: #### L [id number], L501.9910, L100.0500 #### [facility] [address] [place], [address] Platelets (Bld) [#/Vol] 186 10*3/uL Normal 150-[address] [facility] Comment on above: Performed By: #### L [id number], L501.9910, L100.0500 #### [facility] [address] [place], [address] RBC (Bld) [#/Vol] 4.41 10*6/uL Low 4.6-6.2 [facility] Comment on above: Performed By: #### L [id number], L501.9910, L100.0500 #### [facility] [address] [place], [address] RDW SD 49.0 fl High 35.1-43.[address] [facility] Comment on above: Performed By: #### L [id number], L501.9910, L100.0500 #### [facility] [address] [place], [address] WBC (Bld) [#/Vol] 6.3 10*3/uL Normal 4.4-11.0 [place] Comment on above: Performed By: #### L [id number], L501.9910, L100.0500 #### [facility] [address] [place], [address] Erythrocyte distribution wid th ratioOrdered By: Rory Camacho on 06-30-2024 Erythrocyte distribution width (RBC) [Ratio] 14.2 % 11.6-14.[address] [facility] Erythrocyte distribution wid th standard deviationOrdered By: Rory Camacho on 06-30-2024 Erythrocyte distribution width (RBC) [Entitic vol] 49.0 fL High 35.1-43.[address] [facility] Hematocrit Auto (Bld) [Volum e fraction]Ordered By: Rory Camacho on 06-30-2024 Hematocrit (Bld) [Volume fraction] 41.3 % 40-[address] [facility] Hemoglobin measurementOrdere d By: Rory Camacho on 06-30-2024 Hemoglobin (Bld) [Mass/Vol] 13.3 g/dL 13.0-16.[address] [facility] Internal Medicine Office Vis iton 06-30-2024 Internal Medicine Office Visit [facility] [address] [place], [place] [address] OFFICE VISIT Date of Service: 06/30/24 MR#: [id number] Acct: [id number] Name: ANOOP ROCKWELL Rep #: [id number] : 1945 Provider: Dr. Rory Harris Br own, DO Age/Sex: 79/M [place] [facility] [place] Status: Signed Intake Vital Signs 12/31/23 08:58 06/30/24 08:31 Height 5 ft 8 in 5 ft 8 in Weight: 164 lb 4 oz 173 lb BMI 25.0 26.3 BP 118/60 118/62 Blood Pressure Location Lt brachial Lt brachial Position Sitting Sitting Respiration 16 18 Pulse 65 76 Pulse Source Monitor Monitor Temp 97.5 F L 98.2 F Temp Source Temporal Temporal Pulse Oximetry (%) 99 98 Oxygen Delivery Method room air room air Intake Visit Reasons: 6 M FU Chief Complaint: 6 M FU Is patient in pain?: No Allergies donepezil (From Aricept) Allergy (Unknown, Verified 06/30/24 08:33) Unknown tramadol Allergy (Verified 06/30/24 08:33) NEEDS FOLLOW-UP Medications ???Medication ???Instructions ???Recorded ???Confirmed ???Type cholecalciferol (vitamin D3) 25 1,000 unit PO DAILY supplement 02/0106/30/24 History mcg (1,000 unit) tablet aspirin 81 mg chewable tablet 81 mg PO BIDCM 30 days #60 tabs 06/30/24 Rx zinc acetate 25 mg (zinc) capsule 50 mg PO DAILY 06/19/22 06/30/24 History (Galzin) naproxen sodium 220 mg capsule 220 mg PO DAILY 12/19/22 06/30/24 History (Aleve) metoprolol tartrate 50 mg tablet 25 mg (1/2 x 50 mg) PO DAILY bp 06/30/24 Rx #90 tabs ascorbic acid (vitamin C) 250 mg 1,000 mg PO DAILY 06/30/24 5 History tablet levothyroxine 75 mcg tablet 75 mcg PO DAILY #90 tabs 06/30/24 06/30/24 Rx memantine 10 mg tablet 10 mg PO BID #200 TABLETS 06/30/24 06/30/24 Rx tamsulosin 0.4 mg capsule See Rx Instructions .Route 5 06/30/24 Rx .COMPLEX #100 caps Have you fallen in the past year?: No Nurse's Note: pt has c/o of mole on left chest [facility] Medical History Wears hearing aid Wears glasses Alzheimer disease Thyroid disease Prostate disease Restless legs Non-smoker Leg cramps History of pain when walking History of echocardiogram History of stress test Cardiology follow-up encounter Mitral valve prolapse Arthritis Memory impairment BPH (benign prostatic hyperplasia) Hypothyroid Surgical History Status post total hip replacement, right Hx of total hip arthroplasty History of colonoscopy history eyelid surgery History of cataract extraction History of knee replacement History of cardiac catheterization History of orthopedic surgery Family History Brother Stomach cancer Lung cancer Diabetes Sister Diabetes Social History Smoking Status: Never smoker alcohol intake: never substance use type: does not use what type of physical activity do you participate in: none HPI HPI Chief Complaint: 6 M FU Details: ANOOP ROCKWELL, is a 79 M who presents to the office today for his 6-month recheck. He is accompanied by his who says that she notices he is less talkative than he used to be and that his walking is more hesitant. He still rides a 3 loza bike daily, but when asked what he does during the day his reply is nothing. ROS Const Constitutional: No body ache, chills, excessive sweating, fatigue, fever(s), frequent falls, headache(s), snoring, weight change, sleep problems, abnormal sleep pattern or change in appetite Eyes Eyes: No blurry vision, change in vision, eye pain or Light sensitivity ENT ENT: No abnormal hearing, ear or mastoid pain, tinnitus, nasal congestion, headache(s), neck pain or sore throat Resp Respiratory: No cough, shortness of breath, snoring or wheezing Cardio Cardiology: No chest pain at rest, chest pain with exertion, excessive sweating, shortness of breath, dyspnea on exertion, lightheadedness, orthopnea or palpitations Gastro GI: No abdominal pain, change in bowel habits, constipation, cramping, diarrhea, nausea/dyspepsia or vomiting Genitourinary Male: No burning urination, painful urination, urinary incontinence or urinary frequency Musc Musculoskeletal: No abnormal gait, joint pain, back pain, limited range of motion, neck pain, numbness or tingling Skin Skin: No dry skin, redness, lesions, itchy eyes, rash or wounds Neuro Neurology: No abnormal gait, abnormal hearing, frequent falls, headache(s), memory loss, numbness or tingling Psych Psychiatric: No abnormal sleep pattern, No anxiety, No change in appetite, No irritability, No memory loss and No Thoughts of harming yourself/Others Endo Endocr (more content not included)... Normal [facility] MCV (mean corpuscular volume ) determinationOrdered By: Rory Camacho on 06-30-2024 MCV (RBC) [Entitic vol] 93.7 fL 80-94 [facility] Mean corpuscular hemoglobin (MCH) determinationOrdered By: Rory Camacho on 06-30-2024 MCH (RBC) [Entitic mass] 30.2 pg 27.0-32.[address] [facility] Mean corpuscular hemoglobin concentration (MCHC) determinationOrdered By: Rory Camacho on 06-30-2024 MCHC (RBC) [Mass/Vol] 32.2 g/dL 32-36 [facility] Mean platelet volume determi nationOrdered By: Rory Camacho on 06-30-2024 Platelet mean volume (Bld) [Entitic vol] 12.2 fL High 6.2-12.[address] [facility] PSA, total screeningOrdered By: Rory Camacho on 06-30-2024 Prostate Specific Antigen Screen 1.74 ng/mL 0.02-4.[address] [facility] Comment on above: This test was perfor med using the [employer] tPSA method. Measured values of a patient sample can vary depending on the testing procedure used. PSA values determined on patient samples by different testing procedures cannot be used interchangeably. If there is a change in PSA assays while monitoring therapy, sequential testing should be performed to confirm baseline values. PSA,Total - Annual Screenon 06-30-2024 PSA,TOT SCREEN 1.74 ng/mL Normal 0.02-4.[address] [facility] Comment on above: Result Comment: This test was performed using the [employer] tPSA method. Measured values of a patient??sample can vary depending on the testing procedure used. PSA values determined on patient samples by different testing procedures cannot be used interchangeably. If there is a change in PSA assays while monitoring therapy, sequential testing should be performed to confirm baseline values. Performed By: #### L [id number], L501.9910, L100.0500 #### [facility] [address], [address] Platelet countOrdered By: jdjazlyn Camacho on 06-30-2024 Platelets (Bld) [#/Vol] 186 10*3/uL 150-[address] [facility] RBC Auto (Bld) [#/Vol]Ordere d By: Rory Doug on 06-30-2024 RBC (Bld) [#/Vol] 4.41 10*6/uL Low 4.6-6.2 [facility] TSH DL <= 0.005 mIU/L QnOrde red By: Roryjazlyn Camacho on 06-30-2024 Thyroid Stimulating Hormone (TSH) 3.100 uIU/mL 0.300-4.[address] [facility] Thyroid Stim Hormone (TSH)on 06-30-2024 TSH 3.100 uIU/mL Normal 0.300-4.[address] [facility] Comment on above: Performed By: #### L [id number], L501.9910, L100.0500 #### [facility] [address] [place], [address] White blood cell (WBC) count Ordered By: Rory Doug on 06-30-2024 WBC (Bld) [#/Vol] 6.3 10*3/uL 4.4-11.0 [place] Basic Metabolic Profile (BMP )on 12-31-2023 BUN/CRE 19.7 RATIO Normal 10-[address] [facility] Comment on above: Performed By: #### L 500.2500 #### [facility] [address] [place], [address] CA,Total 9.1 mg/dL Normal 8.5-10.[address] [facility] Comment on above: Performed By: #### L 500.2500 #### [facility] [address] [place], [address] Chloride [Moles/Vol] 108 mmol/L High 98-107 [facility] Comment on above: Performed By: #### L 500.2500 #### [facility] [address] [place], [address] CO2 [Moles/Vol] 25.0 mmol/L Normal 21.0-32.[address] [facility] Comment on above: Performed By: #### L 500.2500 #### [facility] [address] [place], [address] Creatinine [Mass/Vol] 1.42 mg/dL High 0.70-1.30 [facility] Comment on above: Result Comment: The validity of the calculated GFR GFRAA in patients over 70 years has not been determined. Clinical correlation is essential. Performed By: #### L 500.2500 #### [facility] [address] [place], [address] EST GFR - AA 62 mL/min Normal >[address] [facility] Comment on above: Result Comment: Afri can [place] GFR Calc Performed By: #### L 500.2500 #### [facility] [address] [place], [address] GAP 7 Normal 5-[address] [facility] Comment on above: Performed By: #### L 500.2500 #### [facility] [address] [place], [address] GFR/1.73 sq M.predicted among non-blacks MDRD (S/P/Bld) [Vol rate/Area] 51 mL/min/{1.73_m2} Low >[address] [facility] Comment on above: Result Comment: Non- GFR Calc Performed By: #### L 500.2500 #### [facility] [address] [place], [address] Glucose [Mass/Vol] 101 mg/dL Normal 74-106 [place] Comment on above: Result Comment: Fast ing Glucose result from 100 to 125 mg/dL suggests IMPAIRED HOMEOSTASIS per A.D.A. criteria. Performed By: #### L 500.2500 #### [facility] [address] [place], [address] Potassium [Moles/Vol] 5.1 mmol/L Normal 3.5-5.1 [facility] Comment on above: Performed By: #### L 500.2500 #### [facility] [address] [place], [place], [id number] Sodium [Moles/Vol] 140 mmol/L Normal 136-145 [place] Comment on above: Performed By: #### L 500.2500 #### [facility] [address] [place], [place], [id number] Urea nitrogen [Mass/Vol] 28 mg/dL High 7-[address] [facility] Comment on above: Performed By: #### L 500.2500 #### [facility] [address] [place], [place], [address] Internal Medicine Office Vis itohéctor 12-31-2023 Internal Medicine Office Visit [facility] [address] [place], [place] [address] OFFICE VISIT Date of Service: 12/31/23 MR#: [id number] Acct: [id number] Name: ANOOP ROCKWELL Rep #: [id number] : 1945 Provider: Dr. Rory Hernandez own, DO Age/Sex: 78/M [place] [facility] [place]: Signed Intake Vital Signs 06/26/23 09:54 12/31/23 08:58 Height 5 ft 8 in 5 ft 8 in Weight: 167 lb 164 lb 4 oz BMI 25.4 25.0 BP 110/70 118/60 Blood Pressure Location Lt brachial Lt brachial Position Sitting Sitting Respiration 14 16 Pulse 59 L 65 Pulse Source Monitor Monitor Temp 97.4 F L 97.5 F L Temp Source Temporal Temporal Pulse Oximetry (%) 99 99 Oxygen Delivery Method room air room air Intake Visit Reasons: 6 M Chief Complaint: 6 M FU Test Cell Technician Required: No Accompanied by: Is patient in pain?: No Allergies donepezil (From Aricept) Allergy (Unknown, Verified 12/31/23 08:49) Unknown tramadol Allergy (Verified 12/31/23 08:49) NEEDS FOLLOW-UP Medications ???Medication ???Instructions ???Recorded ???Confirmed ???Type cholecalciferol (vitamin D3) 25 1,000 unit PO DAILY supplement 02/23/20 12/31/23 History mcg (1,000 unit) tablet aspirin 81 mg chewable tablet 81 mg PO BIDCM 30 days #60 tabs 01/12/21 12/31/23 Rx ascorbic acid (vitamin C) 250 mg 250 mg PO DAILY 12/21/21 12/31/23 History tablet zinc acetate 25 mg (zinc) capsule 50 mg PO DAILY 06/19/22 12/31/23 History (Galzin) naproxen sodium 220 mg capsule 220 mg PO DAILY 12/19/22 12/31/23 History (Aleve) levothyroxine 75 mcg tablet 75 mcg PO DAILY #90 tabs 06/26/23 12/31/23 Rx memantine 10 mg tablet See Rx Instructions .Route 06/26/23 12/31/23 Rx .COMPLEX #200 tabs metoprolol tartrate 50 mg tablet 25 mg (1/2 x 50 mg) PO DAILY bp 06/26/23 12/31/23 Rx #90 tabs tamsulosin 0.4 mg capsule See Rx Instructions .Route 06/26/23 12/31/23 Rx .COMPLEX #100 caps Have you fallen in the past year?: No PFSH Medical History Wears hearing aid Wears glasses Alzheimer disease Thyroid disease Prostate disease Restless legs Non-smoker Leg cramps History of pain when walking History of echocardiogram History of stress test Cardiology follow-up encounter Mitral valve prolapse Arthritis Memory impairment BPH (benign prostatic hyperplasia) Hypothyroid Surgical History Status post total hip replacement, right Hx of total hip arthroplasty History of colonoscopy history eyelid surgery History of cataract extraction History of knee replacement History of cardiac catheterization History of orthopedic surgery Family History Brother Stomach cancer Lung cancer Diabetes Sister Diabetes Social History Smoking Status: Never smoker alcohol intake: never substance use type: does not use what type of physical activity do you participate in: none HPI HPI Chief Complaint: 6 M FU Details: ANOOP ROCKWELL, is a 78 M who presents to the office today for his 6-month follow-up exam. He says he is doing very well his thinks she still has considerable memory problems. She also says he is tired all the time and his retort was that he is almost 80 years old what you expect. ROS Const Constitutional: No body ache, chills, excessive sweating, fatigue, fever(s), frequent falls, headache(s), snoring, weakness or change in appetite Eyes Eyes: No blurry vision, change in vision, eye pain or Light sensitivity ENT ENT: No abnormal hearing, ear or mastoid pain, tinnitus, nasal congestion, headache(s), neck pain or sore throat Resp Respiratory: No cough, shortness of breath, snoring or wheezing Cardio Cardiology: No chest pain at rest, chest pain with exertion, excessive sweating, dyspnea on exertion, lightheadedness, orthopnea or palpitations Gastro GI: No abdominal pain, change in bowel habits, constipation, cramping, diarrhea, nausea/dyspepsia or vomiting Genitourinary Male: No burning urination, painful urination, urinary incontinence or urinary frequency Musc Musculoskeletal: No abnormal gait, joint pain, back pain, limited range of motion, muscle weakness, neck pain or numbness Skin Skin: No dry skin, redness, lesions, itchy eyes, rash or wounds Neuro Neurology: No abnormal gait, abnormal hearing, weakness, frequent falls, headache(s), memory loss or numbness Psych Psychiatric: No anxiety, No change in appetite, No depression, No memory loss and No Thoughts of harming yourself/Others Endo Endocrine: No cold intolerance, excessive sweating, fatigue, flushing, heat intolerance, increased thirst/drinking or increased hunger Aller/Imm (more content not included)... Normal [facility] Absolute lymphocyte countOrd ered By: Rory Camacho on 06-26-2023 Lymphocytes Auto (Unsp spec) [#/Vol] 1.48 10*3/uL 0.83-4.[address] [facility] Automated lymphocyte count a s percentage of total leukocytesOrdered By: Rory Camacho on 06-26-2023 Lymphocytes/100 WBC Auto (Unsp spec) 21.9 % 19-[address] [facility] Basophil percentageOrdered B y: Rory Camacho on 06-26-2023 Basophils/100 WBC (Bld) 0.4 % 0-1 [facility] Bilirubin [Mass/Vol] 0.50 mg/dL 0.20-1.00 [facility] Comment on above: For patients on eltr ombopag therapy, use of Dimension [place] TBIL is not recommended. Chloride [Moles/Vol] 107 mmol/L 98-107 [facility] Eosinophils/100 WBC (Bld) 1.8 % 0-[address] [facility] Glucose [Mass/Vol] 104 mg/dL 74-106 [place] Comment on above: Fasting Glucose resu lt from 100 to 125 mg/dL suggests IMPAIRED HOMEOSTASIS per A.D.A. criteria. Hemoglobin (Bld) [Mass/Vol] 14.7 g/dL 13.0-16.[address] [facility] Monocytes/100 WBC (Bld) 11.4 % 0-10 [facility] Neutrophils (Bld) [#/Vol] 4.3 10*3/uL 2.0-7.[address] [facility] Neutrophils/100 WBC (Bld) 64.1 % 47-[address] [facility] Potassium [Moles/Vol] 5.6 mmol/L 3.5-5.1 [facility] Protein [Mass/Vol] 7.1 g/dL 6.4-8.2 [place] Sodium [Moles/Vol] 140 mmol/L 136-145 [place] WBC (Bld) [#/Vol] 6.8 10*3/uL 4.4-11.0 [place] Determination of erythrocyte mean corpuscular volume (MCV)Ordered By: Rory Camacho on 06-26-2023 MCV (RBC) [Entitic vol] 94.0 fL 80-94 [facility] Erythrocyte distribution wid th ratioOrdered By: Rory Camacho on 06-26-2023 Erythrocyte distribution width (RBC) [Ratio] 14.1 % 11.6-14.[address] [facility] Erythrocyte distribution wid th standard deviationOrdered By: Rory Camacho on 06-26-2023 Erythrocyte distribution width (RBC) [Entitic vol] 48.6 fL 35.1-43.[address] [facility] Hematocrit Auto (Bld) [Volum e fraction]Ordered By: Rory Camacho on 06-26-2023 Hematocrit (Bld) [Volume fraction] 46.7 % 40-[address] [facility] Immature granulocytes/100 WB C Auto (Bld)Ordered By: Rory Camacho on 06-26-2023 Immature granulocytes/100 WBC (Bld) 0.400 % 0.0-0.[address] [facility] Comment on above: IG% - Immature Granu locytes (promyelocytes, myelocytes and metamyelocytes) > 1% indicates that a LEFT SHIFT is Present. Laboratory - Chemistry and C hemistry - challengeOrdered By: Rory Camacho on 06-26-2023 Albumin/Globulin [Mass ratio] 1.3 {ratio} 0.9-2.[address] [facility] ALP [Catalytic activity/Vol] 67 U/L 45-[address] [facility] ALT [Catalytic activity/Vol] 28 U/L 16-[address] [facility] CO2 [Moles/Vol] 25.0 mmol/L 21.0-32.[address] [facility] Globulin (S) [Mass/Vol] 3.1 g/dL 2.2-4.2 [facility] Urea nitrogen/Creatinine [Mass ratio] 24.4 mg/mg 10-[address] [facility] - Hematology and Cell countsOrdered By: Rory Camacho on 06-26-2023 MCH (RBC) [Entitic mass] 29.6 pg 27.0-32.[address] [facility] MCHC (RBC) [Mass/Vol] 31.5 g/dL 32-36 [facility] Nucleated RBC/100 WBC (Bld) [Ratio] 0 % 0-[address] [facility] Platelet mean volume (Bld) [Entitic vol] 11.2 fL 6.2-12.[address] [facility] Platelets (Bld) [#/Vol] 198 10*3/uL 150-[address] [facility] No Panel InformationOrdered By: Rory Camacho on 06-26-2023 Estimated GFR (MDRD) Amer 66 mL/min >[address] [facility] Comment on above: GFR Calc Estimated GFR (MDRD) Non-Af Amer 54 mL/min >[address] [facility] Comment on above: Non- GFR Calc Prostate Specific Antigen Screen 1.47 ng/mL 0.00-4.[address] [facility] Comment on above: This test was perfor med using the TPSA assay method for the[employer] chemistry system. Values obtained with differentassay methods cannot be used interchangably.When changing PSA assays in the course of monitoring apatient, additional sequential testing should be carriedout to confirm baseline values. RBC Auto (Bld) [#/Vol]Ordere d By: Rory Camacho on 06-26-2023 RBC (Bld) [#/Vol] 4.97 10*6/uL 4.6-6.2 [facility] Serum or plasma calcium phoenix urement (mass/volume)Ordered By: Rory Camacho on 06-26-2023 Calcium [Mass/Vol] 9.2 mg/dL 8.5-10.1 [place] Serum or plasma creatinine m easurement (mass/volume)Ordered By: Rory Camacho on 06-26-2023 Creatinine [Mass/Vol] 1.35 mg/dL 0.70-1.30 [facility] Comment on above: The validity of the calculated GFR & GFRAA in patients over 70 years has not been determined. Clinical correlation is essential. Serum or plasma thyroid stim ulating hormone (TSH) measurement (units/volume)Ordered By: Rory Camacho on 06-26-2023 TSH Qn 1.51 uIU/mL 0.358-3.[address] [facility] Serum or plasma urea nitroge n measurement (mass/volume)Ordered By: Rory Camacho on 06-26-2023 Urea nitrogen [Mass/Vol] 33 mg/dL 7-[address] [facility] Thin prep Papanicolaou smear with manual screeningOrdered By: Rory Camacho on 06-26-2023 Thin prep Papanicolaou smear with manual screening 4.0 g/dL 3.2-5.[address] [facility] Thin prep Papanicolaou smear with manual screening 26 U/L 15-[address] [facility] Thin prep Papanicolaou smear with manual screening 8 5-15 [facility] Basophil percentageOrdered B y: Dr. Camacho on 06-19-2022 Basophil percentage 2.8 mg/dL 2.5-4.9 [facility] Chloride [Moles/Vol] 107 mmol/L 98-107 [facility] Glucose [Mass/Vol] 86 mg/dL 74-106 [place] Potassium [Moles/Vol] 4.8 mmol/L 3.5-5.1 [facility] Sodium [Moles/Vol] 141 mmol/L 136-145 [place] Laboratory - Chemistry and C hemistry - challengeOrdered By: Dr. Camacho on 06-19-2022 CO2 [Moles/Vol] 29.0 mmol/L 21.0-32.[address] [facility] Urea nitrogen/Creatinine [Mass ratio] 20.8 mg/mg 10-[address] [facility] No Panel InformationOrdered By: Dr. Camacho on 06-19-2022 Estimated GFR (MDRD) Amer 69 mL/min >[address] [facility] Comment on above: GFR Calc Estimated GFR (MDRD) Non-Af Amer 57 mL/min >[address] [facility] Comment on above: Non- GFR Calc Serum or plasma albumin phoenix urement (mass/volume)Ordered By: Dr. Camacho on 06-19-2022 Albumin [Mass/Vol] 4.0 g/dL 3.2-5.0 [place] Serum or plasma calcium phoenix urement (mass/volume)Ordered By: Dr. Camacho on 06-19-2022 Calcium [Mass/Vol] 9.2 mg/dL 8.5-10.1 [place] Serum or plasma creatinine m easurement (mass/volume)Ordered By: Dr. Camacho on 06-19-2022 Creatinine [Mass/Vol] 1.30 mg/dL 0.70-1.30 [facility] Comment on above: The validity of the calculated GFR & GFRAA in patients over 70 years has not been determined. Clinical correlation is essential. Serum or plasma urea nitroge n measurement (mass/volume)Ordered By: Dr. Camacho on 06-19-2022 Urea nitrogen [Mass/Vol] 27 mg/dL 7-[address] [facility] Serum or plasma uric acid me asurement (mass/volume)Ordered By: Dr. Camacho on 06-19-2022 Urate [Mass/Vol] 6.8 mg/dL 3.5-7.[address] [facility] Comment on above: The drugs N-Acetylcy steine and Metamizole may falsely depress this assay. Robby 08-16-2020 CNOV Office Visit (GENSWS) ---- ANOOP ROCKWELL ([id number]) 1945 M Date Time Provider Department 08/16/20 3:20 PM JOVANY NAIR During your visit today, we recorded the following information about you: Temperature Pulse Weight Height 98.3 degrees 76/minute 71.5 kg 1.753 m Gualberto Armenta LPN 08/16/2020 3:38 PM Signed [...] Neurologic: The patient denies a history of epilepsy/convulsion s, denies headaches, denies head/spinal injuries, and denies [...] Mammogram screening? N/A Last Colonoscopy: Unknown Gualberto Nair MD 08/17/2020 6:14 AM Signed HISTORY AND PHYSICAL Anoop Granda Moiz 1945 REFERRING PHYSICIAN: Rory Camacho DO CHIEF [...] - COLONOSCOPY - EYELID CANTHOPLASTY MEDIAL Bilateral 2018 - HEART CATHETERIZATION - INGUINAL HERNIA REPAIR [...] memantine (NAMENDA) 10 mg tablet No current facility-administer ed medications for this visit. ALLERGIES: Donepezil and Tramadol PERSONAL HISTORY: Social History Tobacco Use - Smoking status: Never Smoker - Smokeless tobacco: Never Used Substance Use Topics - Alcohol use: Not on file - Drug use: Not on file FAMILY HISTORY: History reviewed. No pertinent family history. REVIEW OF SYMPTOMS: The review of systems data was entered by the nurse and reviewed by nv Nursing Notes: Gualberto Armenta LPN 08/16/2020 3:38 PM Signed REVIEW OF SYSTEMS: General: The patient denies fatigue, denies weight loss, denies weight gain, denies feeling hot, and denies feelings of cold. Eyes: The patient denies glaucom (more content not included)... Normal [facility] LIPIDon 06-26-2018 Cholesterol in HDL mass conc 51 mg/dL Normal 40-60 [facility] ([place] Comment on above: Performed By: #### L IPID #### [address] [address] Cholesterol in LDL mass conc 161 mg/dL High 0-130 [facility] ([place] Comment on above: Performed By: #### L IPID #### [address] [address] Cholesterol mass conc 230 mg/dL High 0-200 [facility] ([place]) Comment on above: Result Comment: Chol esterol Reference Interval: Less than 200 Desirable 200-239 Borderline high risk 240 and above High risk Performed By: #### L IPID #### [address] [address] Triglyceride mass conc 90 mg/dL Normal 0-150 [facility] ([place]) Comment on above: Result Comment: Trig lyceride Reference Interval: Less than 150 Normal 150-199 Borderline high risk 200-499 High risk 500 or higher Very high risk Performed By: #### L IPID #### [place] [id number] [place] [address] MRI BRAIN W/O CONTRASTon MRI BRAIN W/O CONTRAST ORIGINAL MRI BRAIN W/O CONTRAST Clinical Statement: ATAXIA, DEMENTIA TECHNIQUE: Sagittal T1, axial FLAIR, T2 and diffusion-weighted images of the brain with ADC maps. COMPARISON: None. FINDINGS: Diffusion imaging shows no hyperacute, acute, or early subacute infarction. There is no mass, mass-effect, or abnormal extra-axial fluid collection. Dilated perivascular spaces are noted in the LEFT basal ganglia. There is no abnormal brain parenchymal signal. The ventricles are mildly enlarged with commensurate enlargement of sulci consistent with mild atrophy which is most prominent posteriorly. Bilateral cerebellar atrophy also noted. There are preserved signal [...] 11:49:05 AM Sign Date: 08/19/2017 11:56:00 AM Normal [facility] ([place] .GFRon 08-02-2017 GFR 74 ml/min/1.73sqm Normal [facility] [place] Comment on above: Result Comment: GFR Population mean for , [...] 15 mL/min/1.73 square meters Performed By: #### B UN, CRE, GFR, TSH #### [address] [address] #### B12, FOL #### [address] [address] GFR Non- >60 Normal [facility] ([place] Comment on above: Result Comment: GFR Population mean for , [...] 15 mL/min/1.73 square meters Performed By: #### B UN, CRE, GFR, TSH #### [place] [address] #### B12, FOL #### [place] [address] B12on 08-02-2017 Cobalamin (Vitamin B12) mass conc 424 pg/mL Normal 211-911 [facility] ([place] Comment on above: Performed By: #### B UN, CRE, GFR, TSH #### [place] [address] #### B12, FOL #### [place] [address] BUNon 08-02-2017 Urea nitrogen mass conc 29.1 mg/dL High 7.0-18.0 [facility] ([place]) Comment on above: Performed By: #### B UN, CRE, GFR, TSH #### [place] [address] #### B12, FOL #### [place] [address] CREon 08-02-2017 Creatinine mass conc 1.2 mg/dL Normal 0.6-1.2 [facility] ([place]) Comment on above: Performed By: #### B UN, CRE, GFR, TSH #### [address] [address] #### B12, FOL #### [address] [address] FOLon 08-02-2017 Folate 19.3 ng/mL Normal 1.1-20.0 [facility] ([place] Comment on above: Performed By: #### B UN, CRE, GFR, TSH #### [address] [address] #### B12, FOL #### [place] [address] TSHon 08-02-2017 Thyrotropin Qn 3.83 mcIU/mL Normal 0.27-4.20 [facility] ([place] Comment on above: Performed By: #### B UN, CRE, GFR, TSH #### [place] [address] #### B12, FOL #### [place] [address] Vital Signs Date Time Vital Sign Value Performing Clinician Criss carlson 06-30-2024 08:31-0400 Body height 172.[address] Rory Camacho DO Work Phone: [facility] 06-30-2024 08:31-0400 Body mass index (BMI) [Ratio] 26.3 kg/m2 Dr. Rory Camacho DO Work Phone: [facility] 06-30-2024 08:31-0400 Body temperature 98.2 [degF] Dr. Rory Camacho DO Work Phone: [facility] 06-30-2024 08:31-0400 Body weight 78.[address] Rory Camacho DO Work Phone: [facility] 06-30-2024 08:31-0400 Diastolic blood pressure 62 mm[Hg] Dr. Rory Camacho DO Work Phone: [facility] 06-30-2024 08:31-0400 Heart rate 76 /min Dr. Rory Camacho DO Work Phone: [facility] 06-30-2024 08:31-0400 Respiratory rate 18 /min Dr. Rory Camacho DO Work Phone: [facility] 06-30-2024 08:31-0400 SaO2% (BldA) [Mass fraction] 98 % Dr. Rory Camacho DO Work Phone: [facility] 06-30-2024 08:31-0400 Systolic blood pressure 118 mm[Hg] Dr. Rory Camacho DO Work Phone: [facility] 06-26-2023 09:54-0400 Body height 172.[address] Rory Camacho Work Phone: [facility] 06-26-2023 09:54-0400 Body mass index (BMI) [Ratio] 25.4 kg/m2 Dr. Rory Camacho Work Phone: [facility] 06-26-2023 09:54-0400 Body temperature 97.4 [degF] Dr. Rory Camacho Work Phone: [facility] 06-26-2023 09:54-0400 Body weight 75.[address] Rory Camacho Work Phone: [facility] 06-26-2023 09:54-0400 Diastolic blood pressure 70 mm[Hg] Dr. Rory Camacho Work Phone: [facility] 06-26-2023 09:54-0400 Heart rate 59 /min Dr. Rory Camacho Work Phone: [facility] 06-26-2023 09:54-0400 Respiratory rate 14 /min Dr. Rory Camacho Work Phone: [facility] 06-26-2023 09:54-0400 SaO2% (BldA) [Mass fraction] 99 % Dr. Rory Camacho Work Phone: [facility] 06-26-2023 09:54-0400 Systolic blood pressure 110 mm[Hg] Dr. Rory Camacho Work Phone: [facility] 12-19-2022 09:33-0400 Body height 172.[address] Rory Camacho Work Phone: [facility] 12-19-2022 09:33-0400 Body mass index (BMI) [Ratio] 25 kg/m2 Dr. Rory Camacho Work Phone: [facility] 12-19-2022 09:33-0400 Body temperature 97.5 [degF] Dr. Rory Camacho Work Phone: [facility] 12-19-2022 09:33-0400 Body weight 74.[address] Rory Camacho Work Phone: [facility] 12-19-2022 09:33-0400 Diastolic blood pressure 62 mm[Hg] Dr. Rory Camacho Work Phone: [facility] 12-19-2022 09:33-0400 Heart rate 61 /min Dr. Rory Camacho Work Phone: [facility] 12-19-2022 09:33-0400 Respiratory rate 16 /min Dr. Rory Camacho Work Phone: [facility] 12-19-2022 09:33-0400 SaO2% (BldA) [Mass fraction] 98 % Dr. Rory Camacho Work Phone: [facility] 12-19-2022 09:33-0400 Systolic blood pressure 140 mm[Hg] Dr. Rory Camacho Work Phone: [facility] 06-19-2022 09:11-0500 Body height 172.[address] Rory Camacho Work Phone: [facility] 06-19-2022 09:11-0500 Body mass index (BMI) [Ratio] 25.2 kg/m2 Dr. Rory Camacho Work Phone: [facility] 06-19-2022 09:11-0500 Body temperature 97.2 [degF] Dr. Rory Camacho Work Phone: [facility] 06-19-2022 09:11-0500 Body weight 75.[address] Rory Camacho Work Phone: [facility] 06-19-2022 09:11-0500 Diastolic blood pressure 64 mm[Hg] Dr. Rory Camacho Work Phone: [facility] 06-19-2022 09:11-0500 Heart rate 64 /min Dr. Rory Camacho Work Phone: [facility] 06-19-2022 09:11-0500 Respiratory rate 16 /min Dr. Rory Camacho Work Phone: [facility] 06-19-2022 09:11-0500 SaO2% (BldA) [Mass fraction] 98 % Dr. Rory Camacho Work Phone: [facility] 06-19-2022 09:11-0500 Systolic blood pressure 158 mm[Hg] Dr. Rory Camacho Work Phone: [facility] 08-16-2021 15:42-0400 Body height 172.[address] Rory Camacho Work Phone: [facility] Work Phone: 08-16-2021 15:42-0400 Body mass index (BMI) [Ratio] 24.5 kg/m2 Dr. Rory Camacho Work Phone: [facility] Work Phone: 08-16-2021 15:42-0400 Body temperature 97.2 [degF] Dr. Rory Camacho Work Phone: [facility] Work Phone: 08-16-2021 15:42-0400 Body weight 73.[address] Rory Camacho Work Phone: [facility] Work Phone: 08-16-2021 15:42-0400 Diastolic blood pressure 70 mm[Hg] Dr. Rory Camacho Work Phone: [facility] Work Phone: 08-16-2021 15:42-0400 Heart rate 59 /min Dr. Rory Camacho Work Phone: [facility] Work Phone: 08-16-2021 15:42-0400 Respiratory rate 16 /min Dr. Rory Camacho Work Phone: [facility] Work Phone: 08-16-2021 15:42-0400 SaO2% (BldA) [Mass fraction] 98 % Dr. Rory Camacho Work Phone: [facility] Work Phone: 08-16-2021 15:42-0400 Systolic blood pressure 110 mm[Hg] Dr. Rory Camacho Work Phone: [facility] Work Phone: 06-30-2021 11:03-0400 Body mass index (BMI) [Ratio] 24 kg/m2 Dr. Rory Camacho Work Phone: [facility] Work Phone: 06-30-2021 11:03-0400 Body temperature 97.3 [degF] Dr. Rory Camacho Work Phone: [facility] Work Phone: 06-30-2021 11:03-0400 Body weight 71.[address] Rory Camacho Work Phone: [facility] Work Phone: 06-30-2021 11:03-0400 Diastolic blood pressure 68 mm[Hg] Dr. Rory Camacho Work Phone: [facility] Work Phone: 06-30-2021 11:03-0400 Respiratory rate 14 /min Dr. Rory Camacho Work Phone: [facility] Work Phone: 06-30-2021 11:03-0400 Systolic blood pressure 116 mm[Hg] Dr. Rory Camacho Work Phone: [facility] Work Phone: Encounters Encounter Date Encounter Type Care Provider Facility Start: 10-01-2024 ambulatory Heidi Cannon MATERIAL REPROCESSING ASSOCIATE Facilit y:[facility] Start: 06-30-2024 End: 06-30-[address] Rory Harris DO -[facility] Work Phone: Start: 06-30-2024 End: 06-30-[address] Rory Camacho DO Work Phone: [facility] Work Phone: Start: 06-30-2024 End: 06-30-2024 ambulatory Rory Camacho Facility:[facility] Start: 12-31-2023 End: 12-31-2023 ambulatory Rory Camacho [place] [place]: 12-31-2023 End: 12-31-2023 ambulatory Rory Camacho Facility:[facility] Start: 06-26-2023 End: 06-26-[address] Rory Camacho Work Phone: [facility] Work Phone: Start: 06-26-2023 End: 06-26-[address] Rory Camacho Work Phone: [facility] Work Phone: Start: 12-19-2022 End: 12-19-[address] Rory Camacho Work Phone: [facility] Work Phone: Start: 12-19-2022 End: 12-19-[address] Rory Camacho Work Phone: [facility] Internal [facility] Work Phone: Start: 06-19-2022 End: 06-19-[address] Rory Camacho Work Phone: [facility] Work Phone: Start: 06-19-2022 End: 06-19-[address] Rory Camacho Work Phone: [facility] Start: 08-16-2021 End: 08-16-[address] Rory Camacho Work Phone: [facility] Start: 06-30-2021 End: 06-30-[address] Rory Camacho Work Phone: [facility] Start: 02-01-[address] Rory Camacho Work Phone: [facility] Start: 01-04-[address] Rory Camacho Work Phone: [facility] Start: 07-29-2020 End: 07-29-2020 Patient encounter procedure Jovany Nair Work Phone: [facility] Start: 07-29-2020 Results Only Jovany davison Work Phone: General Surgery Start: 06-26-2018 Patient encounter procedure HEIID CANNNO Facility:[facility] Start: 06-26-2018 End: 06-27-2018 Patient encounter procedure HEIDI CANNON Facility:[facility] Start: 08-19-2017 End: 08-20-2017 Patient encounter procedure FERMIN OSORIO Facility:[facility] Start: 08-02-2017 End: 08-03-2017 Patient encounter procedure FERMIN OSORIO Facility:[facility] Procedures Date Procedure Procedure Detail Performing Clinician Start: 08-16-2021 Plain X-ray of toe Dr. Rory Camacho Work Phone: Start: 07-29-2020 PT ED PATIENT INFORMATION Jovany Nair Work Phone: Plan of Treatment Date Care Activity Detail Author Start: 12-19-2022 Thyroid stimulating hormone measurement [facility] PT ED PATIENT INFORMATION PT ED PATIENT INFORMATION Other 07/29/2020 [facility] Immunizations Immunization Date Immunization Notes Care Provider Fa cility 06-21-2020 Covid (Moderna) Dr. Rory Camacho Work Phone: [facility] 01-14-[address] Rory Camacho Work Phone: [facility] 03-16-2019 influenza, injectabl e, quadrivalent, preservative free Dr. Rory Camacho Work Phone: [facility] 03-16-2019 influenza, seasonal, injectable Dr. Rory Camacho Work Phone: [facility] 03-16-2019 pneumococcal polysaccharide vaccine, [address] Rory Camacho Work Phone: [facility] 02-08-[address] Rory Camacho Work Phone: [facility] 02-08-2018 pneumococcal conjuga te vaccine, [address] Rory Camacho Work Phone: [facility] Payers Date Payer Category Payer Self-pay [id number] 2023 Unknown [id number] 2020 Medicare [employer] [place] [id number] 2020-Present HMO [id number] 2017 Medicaid [id number] 2017 Medicare [id number] 1945 Unknown [id number] 1945 Unknown [id number] 1945 Unknown [id number] 1945 Unknown [id number] Private Health Insurance [facility] [id number] Unknown [id number] Unknown [id number] Unknown [id number] Unknown [id number] Unknown [id number] Social History Date Type Detail Facility [facility] Start: 1945 [facility] Exposure to SARS-CoV -2 (event) Not sure [facility] Start: 08-16-2021 End: 06-26-2023 Tobacco smoking status [facility] Unknown if ever smoked [facility] Start: 04-28-2018 Non-smoker [facility] Start: 1945 Sex Assigned At Male [facility] Start: 06-26-2023 [facility] (finding[facility] Start: 07-08-2024 Sex Male (finding) [facility] Medical Equipment Procedure Code Equipment Code Equipment Origin al Text Equipment Identifier Dates Minimally invasive total replacement of hip joint by anterior approach ACCOLADE II 132 NECK HIP STEM FDA Start: 03-09-2020 Minimally invasive total replacement of hip joint by anterior approach BIOLOXDELTA CERAMIC FEM HEAD FDA Start: 03-09-2020 Minimally invasive total replacement of hip joint by anterior approach TRIDENT II TRITAN SOLID BINU SH FDA Start: 03-09-2020 Minimally invasive total replacement of hip joint by anterior approach TRIDENT X3 0 DEGREE POLYETH IN FDA Start: 03-09-2020 Minimally invasive total replacement of hip joint by anterior approach ([id number]) Ceramic femoral head prosthesis [id number] FDA Start: 01-11-2021 Minimally invasive total replacement of hip joint by anterior approach ([id number]) Coated hip femur prosthesis, modular [id number] FDA Start: 01-11-2021 Minimally invasive total replacement of hip joint by anterior approach ([id number]) Non-constrained polyethylene acetabular liner [id number] FDA Start: 01-11-2021 Minimally invasive total replacement of hip joint by anterior approach ([id number]) Acetabular shell [id number] FDA Start: 01-11-2021 Minimally invasive total replacement of hip joint by anterior approach ACCOLADE II 132 NECK HIP STEM FDA Start: 03-09-2020 Minimally invasive total replacement of hip joint by anterior approach BIOLOXDELTA CERAMIC FEM HEAD FDA Start: 03-09-2020 Minimally invasive total replacement of hip joint by anterior approach TRIDENT II TRITAN SOLID BINU SH FDA Start: 03-09-2020 Minimally invasive total replacement of hip joint by anterior approach TRIDENT X3 0 DEGREE POLYETH IN FDA Start: 03-09-2020 Minimally invasive total replacement of hip joint by anterior approach ACCOLADE II 132 NECK HIP STEM FDA Start: 03-09-2020 Minimally invasive total replacement of hip joint by anterior approach BIOLOXDELTA CERAMIC FEM HEAD FDA Start: 03-09-2020 Minimally invasive total replacement of hip joint by anterior approach TRIDENT II TRITAN SOLID BINU SH FDA Start: 03-09-2020 Minimally invasive total replacement of hip joint by anterior approach TRIDENT X3 0 DEGREE POLYETH IN FDA Start: 03-09-2020 Minimally invasive total replacement of hip joint by anterior approach ACCOLADE II 132 NECK HIP STEM FDA Start: 03-09-2020 Minimally invasive total replacement of hip joint by anterior approach BIOLOXDELTA CERAMIC FEM HEAD FDA Start: 03-09-2020 Minimally invasive total replacement of hip joint by anterior approach TRIDENT II TRITAN SOLID BINU SH FDA Start: 03-09-2020 Minimally invasive total replacement of hip joint by anterior approach TRIDENT X3 0 DEGREE POLYETH IN FDA Start: 03-09-2020 Minimally invasive total replacement of hip joint by anterior approach ACCOLADE II 132 NECK HIP STEM FDA Start: 03-09-2020 Minimally invasive total replacement of hip joint by anterior approach BIOLOXDELTA CERAMIC FEM HEAD FDA Start: 03-09-2020 Minimally invasive total replacement of hip joint by anterior approach TRIDENT II TRITAN SOLID BINU SH FDA Start: 03-09-2020 Minimally invasive total replacement of hip joint by anterior approach TRIDENT X3 0 DEGREE POLYETH IN FDA Start: 03-09-2020 Evaluation note 06-30-2024 Note Date & Type Note Facility 06-30-2024 Evaluation note Diagnosis Onset Date Resolution BPH (benign prostatic hyperplasia) chronic June 30, 2024 8:21am Hypothyroid chronic June 30, 025 8:21am Memory impairment chronic June 132024 8:21am [facility] Work Phone: Progress note 08-17-2020 Note Date & Type Note Facility 08-17-2020 Note HNO ID: [id number] Author: Jovany Nair MD Service: ? Author Type: Physician Type: Progress Notes Filed: 08/17/2020 6:14 AM Note Text: HISTORY AND PHYSICAL Anoop Rockwell 1945 REFERRING PHYSICIAN: Rory Camahco DO CHIEF COMPLAINT: Consult (Consult hernia) HPI: [...] entered by the nurse and reviewed by nv Nursing Notes: Gualberto Armenta LPN 08/16/2020 3:38 [...] screening? N/A Last Colonoscopy: Unknown Gualberto Armenta LPN PHYSICAL EXAMINATION: General: The patient is 75 year old male, well nourished, well hydrated in no acute distress. The patient is oriented to time, place, and person. VITALS: Pulse 76, temperature 36.8 ?C (98.3 ?F), height 175.3 cm (5' 9), weight 71.5 kg (157 lb 9.6 oz), SpO2 97 %. HEENT: Normal cephalic, ataumatic, pupils are equally round, sclera are anicteric, mucous membranes are moist, oropharynx is clear. Neck has no masses, asymmetry or lymphadenopathy. Thyroid is un (more content not included)... [facility] Evaluation note Note Date & Type Note Facility Evaluation note Diagnosis Onset Date BPH (benign prostatic hyperplasia) chronic Hypothyroid chronic Memory impairment chronic Traumatic injury of toe acut e [facility] Work Phone: Evaluation note Note Date & Type Note Facility Evaluation note Diagnosis Onset Date Gout acute BPH (benign prostatic hyperplasia) chronic Hypothyroid chronic Memory impairment chronic [facility] Work Phone: Evaluation note Note Date & Type Note Facility Evaluation note No assessment information availa ble [facility] Work Phone: Evaluation note Note Date & Type Note Facility Evaluation note Diagnosis Onset Date BPH (benign prostatic hyperplasia) chronic Hypothyroid chronic Memory impairment chronic Mitral valve prolapse chroni c [facility] Work Phone: Reason for referral (narrative) Note Date & Type Note Facility Reason for referral (narrative) No reason for referral information available [facility] Work Phone: Summary Purpose Family History No Family History Records Found Relationship Condition Age at Onset Recorded Date/T dmitry brother Malignant neoplasm of stomach Unknown Malignant neoplasm of lung Unknown Diabetes mellitus Unknown sister Diabetes mellitus Unknown Advance Directives No Advanced Directives Records Found Advance Directive Response Recorded Date/ Time Living Will No January 11, 2021 3:12pm Power of Mail Superintendent No December 3:12pm Advance Directive Response Recorded Date/ Time Living Will No January 11, 2021 3:12pm Do you have a Healthcare Power of Mail Superintendent? No January 11, 2021 3:12pm Chief Complaint and Reason for Visit Chief Complaint medication refills HURT TOE EORDER- TOE ON LEFT FOOT Reason for Visit BPH (benign prostati c hyperplasia) Hypothyroid Memory impairment Traumatic injury of toe Chief Complaint 6 M FU Reason for Visit Gout BPH (benign prostatic hyperplasia) Hypothyroid Memory impairment Chief Complaint 6 M FU Chief Complaint 6 M FU Reason for Visit BPH (benign prostati c hyperplasia) Hypothyroid Memory impairment Mitral valve prolapse Chief Complaint Admit Date 6 M FU June 30, 2024 8:2 1am Reason for Visit Admit Date BPH (benign prostatic hyperplasia) June 30, 2024 8:21am Hypothyroid June 30, 2024 8:2 1am Memory impairment June 30, 2024 8:2 1am Additional Source Comments (unrecognized sect ion and content) No Status Records FoundNo Status Records FoundNo Status Records Found INFORMATION SOURCE (unrecogn ized section and content) DATE CREATED AUTHOR 06/28/2018 [facility] ([place]) DATE CREATED AUTHOR AUTHOR'S ORGANIZ ATION 05/15/2021 [facility] DATE CREATED AUTHOR AUTHOR'S ORGANIZ ATION 09/28/2024 [facility] Source Comments (unrecognize d section and content) In the event this informatio n is protected by the Federal Confidentiality of Alcohol and Drug Abuse Patient Records regulations: The Federal rules restrict any use of the information to criminally investigate or prosecute any alcohol or drug abuse patient.[facility] Goals (unrecognized section and content) Goals may be documented in a n alternate sectionGoals may be documented in an alternate sectionGoals may be documented in an alternate sectionGoals may be documented in an alternate sectionGoals may be documented in an alternate section Care Teams (unrecognized sec tion and content) Team Status: Active Member Role Status Dates Dr. Rory Camacho , DO Family Provider Active Dr. Rory Camacho , DO Primary Care Provider Active Team Status: Inactive Member Role Status Dates Dr. Rory Camacho , DO Primary Care Pr ovider, Attending Provider, Referring Provider Active Team Status: Inactive Member Role Status Dates Dr. Rory Camacho , DO Primary Care Provider, Attend ing Provider Active Team Status: Inactive Member Role Status Dates Dr. Rory Camacho , Primary Care Provider Active Start: June 30, 2024 End: June 30, 2024 Dr. Rory Camacho DO Attending Provider Active Start: June 30, 2024 End: June 30, 2024 Dr. Rory Camacho DO Referring Provider Active Start: June 30, 2024 End: June 30, 2024 FOR RECORDS PERTAINING TO PATIENTS WHO ARE [...] BE BASED ON THE PRIMARY CLINICAL RECORDS. [employer] provides no warranty or guarantee of the accuracy or completeness of information in this document.
--- NOTE | 2024-10-02 13:58 | STRESSREP_ITS ---
Stress Test Report Date: 10/01/2024 Procedure: Pharmacologic stress nuclear imaging study Indications: Fatigue, dyspnea on exertion Consent: Per the patient Procedure: The patient underwent pharmacologic (Regadenoson) evaluation with a peak heart rate of 86 beats per minute (60%predicted maximal heart rate) and a peak blood pressure of 126/70 mmHg. The baseline ECG demonstrated normal sinus rhythm. EKG during lexiscan infusion revealed no significant ischemic changes. EKG post infusion revealed no significant ischemic changes [There were no cardiac dysrhythmias pretest, during pharmacologic infusion, or recovery]. [There was no complaint of chest discomfort during pharmacologic infusion or recovery]. The examination was discontinued secondary to completion of protocol. Impression: 1. Lexiscan stress test test is negative for Lexiscan infusion induced EKG changes of ischemia. 2. Lexiscan stress test test is negative for Lexiscan infusion induced chest pain. 3. Results of the nuclear portion of the test is as below Myocardial perfusion imaging study: Technique: The patient was injected with 13.5 millicuries of technetium 99m Cardiolite and subsequently rest SPECT Cardiolite nuclear imaging was obtained in the horizontal long, vertical long, and short axis views. The patient underwent pharmacologic [Regadenoson 0.4mg] evaluation. Please see above for details. The patient was injected with 41 millicuries of technetium 99m Cardiolite and subsequently stress SPECT Cardiolite nuclear imaging was obtained in the horizontal long, vertical long, and short axis views. A gated Cardiolite study at peak stress was obtained. Interpretation: Rest and stress SPECT Cardiolite nuclear imaging status post realignment, normalization, and attenuation correction demonstrate no evidence of significant ischemia or infarction. Mild decrease in the radioisotope uptake on the stress and rest images on the nonattenuation corrected images that resolved with attenuation correction suggestive of diaphragmatic attenuation artifact. Gated images reveal no significant regional wall motion abnormalities. The reported LVEF is 70%. Impression: 1. There is no evidence of significant ischemia or infarction. 2. Estimated ejection fraction is 70%. This note was generated with [employer] software. It may contain incorrect words, spelling, and punctuation that were not noted in checking the note before signing.
== END | disposition home or self-care (01) ==
PROVIDERS: PCP Family Medicine; Referring Provider Nurse Practitioner Family; Visit Provider Nurse Practitioner Family
DX: R06.02 Shortness of breath (principal); I25.10 Atherosclerotic heart disease of native coronary artery without angina pectoris; R00.1 Bradycardia, unspecified; I10 Essential (primary) hypertension; I05.9 Rheumatic mitral valve disease, unspecified
CPT/HCPCS: 78452; 93017; A9500; A4216; J2785